=== PATIENT | female | born 1970 | race Caucasian/White ===

== ENCOUNTER 2016-09-04 03:03 | Emergency (ER) | payer MEDICAID ==
[2016-09-04] MEDS ORDERED: IPRATROPIUM/ALBUTEROL 0.5-2.5 MG/3 ML AMPUL NEB ONE (03:22)
[2016-09-04 03:36] LABS: ABSOLUTE EOSINOPHILS # (AUTO) 0.3 10^3/uL (0.0-0.6); ABSOLUTE LYMPHOCYTES (AUTO) 4.8 10^3/uL (0.5-4.7); ABSOLUTE MONOCYTES (AUTO) 0.7 10^3/uL (0.1-1.4); ABSOLUTE NEUT (AUTO) 4.9 10^3/uL (1.7-8.2); BASOPHILS % (AUTO) 0.5 % (0-2); EOSINOPHILS % (AUTO) 3.2 % (0-6); HEMATOCRIT 39.5 % (36.0-47.0); HEMOGLOBIN 13.7 g/dL (12.0-15.5); HGB HCT DIFFERENCE 1.6; LYMPHOCYTES % (AUTO) 44.2 % (13-45); MEAN CORPUSCULAR HGB CONC 34.6 g/dL (32.0-36.0); MEAN CORPUSCULAR VOLUME 90 fl (80-97); MONOCYTES % (AUTO) 6.2 % (3-13); RED BLOOD COUNT 4.41 10^6/uL (3.72-5.28); RED CELL DISTRIBUTION WIDTH 13.1 % (11.5-14.0); SEGMENTED NEUTROPHILS % (AUTO) 45.9 % (42-78); WHITE BLOOD COUNT 10.8 10^3/uL (4.0-10.5)
[2016-09-04 03:41] LABS: ALANINE AMINOTRANSFERASE 23 U/L (9-52); ALBUMIN 4.1 g/dL (3.5-5.0); ALKALINE PHOSPHATASE 87 U/L (38-126); ANION GAP 13 (5-19); ASPARTATE AMINO TRANSFERASE 22 U/L (14-36); BILIRUBIN,DIRECT 0.4 mg/dL (0.0-0.4); BILIRUBIN,TOTAL 0.5 mg/dL (0.2-1.3); BLOOD UREA NITROGEN 8 mg/dL (7-20); CALCIUM 9.7 mg/dL (8.4-10.2); CARBON DIOXIDE 30 mmol/L (22-30); CHLORIDE 93 mmol/L (98-107); CREATINE KINASE 48 U/L (30-135); GLUCOSE 101 mg/dL (75-110); POTASSIUM 3.5 mmol/L (3.6-5.0); SODIUM 135.8 mmol/L (137-145); TOTAL PROTEIN 7.2 g/dL (6.3-8.2)
[2016-09-04] MEDS: ALBUTEROL SULFATE 0.083% NEB 2.5 MG/3 ML AMPUL NEB SCH ×2 (03:45→03:46)
[2016-09-04 03:53] LABS: CREATINE KINASE MB 0.47 ng/mL (<4.55)
[2016-09-04 03:54] LABS: TROPONIN I < 0.012 ng/mL
--- NOTE | 2016-09-04 04:28 | ER Document Report ---
ED Cardiac - General Chief Complaint: Chest Pain Stated Complaint: DIFFICULTY BREATHING Mode of Arrival: Medic Information source: Patient Notes: Patient presents complaining of a 10 day history of left-sided chest pain, left neck pain, left arm pain, low back pain. Patient states that she does have a history of chronic back pain and typically takes Opana ER but has been out for the past 2 weeks due to insurance issue. Patient states she does have her short acting Percocet which she has been taking, but has to take more of it due to not taking her Opana. Patient reports nausea and vomiting 1 episode today. Patient states she has had chills and felt like she's had a fever but has not measured her temperature at home. Patient complains of cough that is occasionally productive that is somewhat worse than typical other she states she has a chronic cough. Patient denies any immobilization or recent travel. Patient states that she does have a history of previous heart attack that was 12 years ago, although states that she was only told later that she may have had a mild heart attack. Patient states that due to not having her pain medication she has been grinding her teeth and that she attributes her jaw pain to grinding her teeth. TRAVEL OUTSIDE OF THE [place] IN LAST 30 DAYS: No - HPI Patient complains to provider of: Chest pain. denies: Shortness of breath Was the onset of pain: Gradual Chest pain location: Substernal, Under breast Quality of pain: Intermittent Chest pain radiation location: Left jaw, Left arm Pain level currently: 3 Cardiac risk factors: Hypertension, Smoker, Hx VT Associated symptoms: Anxiety, Back pain - Chronic, Fever/chills, Jaw pain, Nausea/vomiting. denies: Dizziness, Shortness of breath Exacerbated by: Denies Relieved by: Nothing Similar symptoms previously: Yes Recently seen / treated by doctor: No - Related Data Allergies/Adverse Reactions: aspirin [Aspirin] Adverse Reaction (Severe, Verified 10/29/14 09:31) esoph bleeding morphine [Morphine] Adverse Reaction (Intermediate, Verified 10/29/14 09:31) bad dreams Past Medical History - General Information source: Patient - Social History Smoking Status: Current Every Day Smoker Frequency of alcohol use: None Drug Abuse: None Occupation: disability Lives with: Family Family History: Arthritis, Hypertension, Malignancy. denies: CAD, CVA, DM, Hyperlipidemia, Thyroid Disfunction - Past Medical History Cardiac Medical History: Reports: Hx Heart Attack - Patient states she was told that she had a small one, Hx Hypertension Pulmonary Medical History: Reports: Hx Asthma, Hx Bronchitis, Hx COPD Denies: Hx Pneumonia Neurological Medical History: Reports: Hx Seizures - 2013 - was on dilantin Renal/ Medical History: Reports: Hx Kidney Stones GI Medical History: Reports: Hx Gastroesophageal Reflux Disease, Hx Ulcer Musculoskeltal Medical History: Reports Hx Arthritis, Reports Hx Musculoskeletal Deformity, Reports Hx Musculoskeletal Trauma Psychiatric Medical History: Reports: Hx Depression Traumatic Medical History: Reports: Hx Fractures Past Surgical History: Reports: Hx Oral Surgery, Hx Orthopedic Surgery - right foot; right hand, Hx Tubal Ligation - Immunizations Immunizations up to date: No Hx Diphtheria, Pertussis, Tetanus Vaccination: No Hx Pneumococcal Vaccination: 05/16/14 Review of Systems - Review of Systems Constitutional: Chills, Fever - Possible EENT: No symptoms reported Cardiovascular: Chest pain Respiratory: Cough. denies: Short of breath Gastrointestinal: Nausea, Vomiting. denies: Abdominal pain Genitourinary: No symptoms reported. denies: Dysuria, Flank pain Female Genitourinary: No symptoms reported Musculoskeletal: Back pain, Neck pain Skin: No symptoms reported Hematologic/Lymphatic: No symptoms reported Neurological/Psychological: No symptoms reported Physical Exam - Vital signs Vitals: Pulse Ox 96 09/04/16 03:12 - General General appearance: Alert In distress: None Notes: Appears older than stated age - HEENT Head: Normocephalic, Atraumatic Eyes: Normal Conjunctiva: Normal Nasal: Normal Mouth/Lips: Normal Pharynx: Normal Neck: No: Lymphadenopathy Notes: Tenderness with palpation of sternocleidomastoid muscle, patient with tenderness with palpation of left TMJ joint - Respiratory Respiratory status: No respiratory distress Chest status: Tender Breath sounds: Nonproductive cough, Rhonchi Chest palpation: Tender - Cardiovascular Rhythm: Regular Heart sounds: S1 appreciated, S2 appreciated Murmur: No - Abdominal Inspection: Normal Distension: No distension Bowel sounds: Normal Tenderness: Nontender Organomegaly: No organomegaly - Back Back: Vertebra tenderness - Lower lumbar tenderness. No: CVA tenderness - Extremities General upper extremity: Normal inspection, Normal ROM General lower extremity: Normal inspection, Normal ROM - Neurological Neuro grossly intact: Yes Cognition: Normal [place] Coma Scale Eye Opening: Spontaneous [place] Coma Scale Verbal: Oriented [place] Coma Scale Motor: Obeys Commands Tae Coma Scale Total: 15 - Psychological Associated symptoms: Normal affect, Normal mood - Skin Skin Temperature: Warm Skin Moisture: Dry Skin Color: Pale Course - Re-evaluation Re-evalutation: 09/04/16 05:54 Patient reports that chest pain is resolved at this time and is requesting to be able to be discharged home. Consulted with Dr. Post regarding patient presentation and diagnostic test results. Patient with her symptoms for the past 10 days. Only recommends one set of cardiac enzyme testing at this time. Repeat EKG reviewed. Discussed planning care with patient, patient verbalized understanding and agrees with plan of care. Discussed worsening signs or symptoms that patient should return immediately for.The patient has atypical chest pain as the patient 's chest pain is not suggestive of pulmonary embolus, cardiac ischemia, aortic dissection, or other serious etiology. Given the extremely low risk of these diagnoses for the test in evaluation for these possibilities does not appear to be indicated at this time. Patient has been instructed to return if the symptoms worsen or change in any way. Heart score 3. - Vital Signs Vital signs: Temp Pulse Resp BP Pulse Ox 20 105/75 93 09/04/16 06:01 09/04/16 06:01 09/04/16 06:01 - Laboratory Result Diagrams: 09/04/16 03:15 09/04/16 03:15 Laboratory results interpreted by me: 09/04/16 09/04/16 03:15 03:15 WBC 10.8 H Absolute Lymphocytes 4.8 H Sodium 135.8 L Potassium 3.5 L Chloride 93 L 09/04/16 05:59 Labs- Entire Visit 09/04/16 09/04/16 09/04/16 03:15 03:15 03:15 WBC 10.8 H RBC 4.41 Hgb 13.7 Hct 39.5 MCV 90 MCH 31.0 MCHC 34.6 RDW 13.1 Plt Count 276 Seg Neutrophils % 45.9 Lymphocytes % 44.2 Monocytes % 6.2 Eosinophils % 3.2 Basophils % 0.5 Absolute Neutrophils 4.9 Absolute Lymphocytes 4.8 H Absolute Monocytes 0.7 Absolute Eosinophils 0.3 Absolute Basophils 0.0 Sodium 135.8 L Potassium 3.5 L Chloride 93 L Carbon Dioxide 30 Anion Gap 13 BUN 8 Creatinine 0.80 Est GFR ( Amer) > 60 Est GFR (Non-Af Amer) > 60 Glucose 101 Calcium 9.7 Total Bilirubin 0.5 Direct Bilirubin 0.4 Indirect Bilirubin Not Reportable Neonat Total Bilirubin Not Reportable AST 22 ALT 23 Alkaline Phosphatase 87 Creatine Kinase 48 CK-MB (CK-2) 0.47 Troponin I < 0.012 Total Protein 7.2 Albumin 4.1 Lipase 09/04/16 03:15 WBC RBC Hgb Hct MCV MCH MCHC RDW Plt Count Seg Neutrophils % Lymphocytes % Monocytes % Eosinophils % Basophils % Absolute Neutrophils Absolute Lymphocytes Absolute Monocytes Absolute Eosinophils Absolute Basophils Sodium Potassium Chloride Carbon Dioxide Anion Gap BUN Creatinine Est GFR ( Amer) Est GFR (Non-Af Amer) Glucose Calcium Total Bilirubin Direct Bilirubin Indirect Bilirubin Neonat Total Bilirubin AST ALT Alkaline Phosphatase Creatine Kinase CK-MB (CK-2) Troponin I Total Protein Albumin Lipase 40.4 - Diagnostic Test Radiology reviewed: Reports reviewed Discharge - Discharge Clinical Impression: Tobacco use disorder, Hypokalemia, Obstructive chronic bronchitis with exacerbation Chest pain Qualifiers: Chest pain type: unspecified Qualified Code(s): R07.9 - Chest pain, unspecified Chronic pain Qualifiers: Chronic pain type: other chronic pain Qualified Code(s): G89.29 - Other chronic pain Condition: Stable Disposition: HOME, SELF-CARE Instructions: Chest Pain of Unclear Cause ([facility]), Chronic Obstructive Lung Disease ([facility]), Doxycycline ([facility]), Inhaled Bronchodilators ([facility]), Chronic Pain Control ([facility]) Additional Instructions: Return immediately for any new or worsening symptoms Followup with your primary care provider, call tomorrow to make a followup appointment Follow up with a health club attendant as an outpatient for a recheck, call Tuesday for an appointment time Use your inhalers at home as prescribed Prescriptions: Benzonatate [Tessalon Perle 100 mg Capsule] 100 mg PO Q8HP PRN #20 cap PRN Reason: Doxycycline Hyclate 100 mg PO BID #20 capsule Referrals: EBONY GRADY DO [Primary Care Provider] - 09/06/16 YUKI DORADO MD [ACTIVE STAFF] - 09/06/16
[2016-09-04 04:39] LABS: ADD ON TESTING BLD IN LAB ACKNOWLEDGE
[2016-09-04 04:45] LABS: LIPASE 40.4 U/L (23-300)
[2016-09-04] MEDS ORDERED: OXYCODONE-ACETAMINOPHEN 5-325 MG TABLET PO ONE (04:58)
[2016-09-04] MEDS ORDERED: POTASSIUM CHLORIDE 10 MEQ TABLET.SA PO ONE (05:57)
[2016-09-04] MEDS ORDERED: DOXYCYCLINE HYCLATE 100 MG TABLET PO ONE (05:59)
[2016-09-04 06:40] VITALS: BP 105/75
--- NOTE | 2016-09-05 17:02 | EKG REPORT ---
SEVERITY:- BORDERLINE ECG - SINUS TACHYCARDIA VENTRICULAR PREMATURE COMPLEX PROBABLE LEFT ATRIAL ABNORMALITY : Confirmed by: Vangie Hemphill MD 05-Sep-2016 17:01:56
--- NOTE | 2016-09-05 17:02 | EKG REPORT ---
SEVERITY:- ABNORMAL ECG - SINUS RHYTHM FIRST DEGREE AV BLOCK LOW VOLTAGE IN FRONTAL LEADS : Confirmed by: Vangie Hemphill MD 05-Sep-2016 17:01:28
== END 2016-09-04 06:40 | disposition home or self-care (01) ==
LOC: ER 03:03
DX: J44.1 Chronic obstructive pulmonary disease with (acute) exacerbation (principal); E87.6 Hypokalemia; R07.9 Chest pain, unspecified; G89.29 Other chronic pain; R06.02 Shortness of breath; M54.2 Cervicalgia; M79.602 Pain in left arm; R05 Cough; F17.200 Nicotine dependence, unspecified, uncomplicated
CPT/HCPCS: 93005; 94640 ×2; 99285; 36415; 82553; 82550; 83690; 85025; 80053; 84484; 71020; 93010; J7620

== ENCOUNTER → 2016-11-02 | Outpatient (CLI) | payer MEDICARE, MEDICAID ==
--- NOTE | 2016-11-02 17:08 | WOMENS IMAGING REPORT ---
EXAM DESCRIPTION: BILAT SCREENING MAMMO W/CAD COMPLETED DATE/TIME: 11/02/2016 3:53 pm REASON FOR STUDY: Z12.31, ROUTINE SCREENING MAMMO Z12.39 ENCOUNTER FOR [facility] SCREENING FOR MALIGNANT NEOPLASM OF COMPARISON: 08/19/2015 TECHNIQUE: Standard craniocaudal and mediolateral oblique views of each breast recorded using GeoQuipa l acquisition. LIMITATIONS: None. FINDINGS: No masses, calcifications or architectural distortion. No areas of suspicion. Read with the assistance of CAD. .[facility] - R2 Cenova Version 1.3 .[facility] - R2 Cenova Version 1.3 .[facility] - R2 Cenova Version 2.4 .[facility] - R2 Cenova Version 2.4 .[facility] - R2 Engineering Aid Version 9.2 IMPRESSION: NORMAL MAMMOGRAM. BIRADS 1. BREAST DENSITY: c. The breasts are heterogeneously dense, which may obscure small masses. BIRAD: 1 NEGATIVE RECOMMENDATION: ROUTINE SCREENING Please consider bilateral screening tomosynthesis in October 2017, given heterogeneously dense tissue COMMENT: The patient has been notified of the results by letter per SA requirements. Additional no tification policies are in place for contacting patient with suspicious or incomplete findings. Quality ID #[id number]: The [employer] recommends an annual screening mammogram for women aged 40 years or over. This facility utilizes a reminder system to ensure that all patients receive reminder letters, and/or direct phone calls for appointments. This includes reminders for routine scr eening mammograms, diagnostic mammograms, or other Breast Imaging Interventions when appropriate. Th is patient will be placed in the appropriate reminder system. The [employer] (ACR) has developed recommendations for screening MRI of the breast s in certain patient populations, to be used in conjunction with mammography. Breast MRI surveillanc e may be appropriate for women with more than 20% lifetime risk of developing breast cancer as deter mined by genetic testing, significant family history of the disease, or history of mantle radiation f or Hodgkins Disease. ACR Practice Guidelines 2008. TECHNICAL DOCUMENTATION: FINDING NUMBER: (1) ASSESSMENT: (1) JOB ID: [id number] [employer]- All Rights Reserved
== END ==
LOC: WI 15:27
PROVIDERS: ATTEND Family Medicine
DX: Z12.31 Encounter for screening mammogram for malignant neoplasm of breast (principal)
CPT/HCPCS: 77067; G0202

== ENCOUNTER 2017-04-13 08:30 | Emergency (ER) | payer MEDICARE, MEDICAID ==
[2017-04-13] MEDS ORDERED: KETAMINE HCL INJ 500 MG/10 ML VIAL ONE (08:35)
[2017-04-13] MEDS ORDERED: IPRATROPIUM/ALBUTEROL 0.5-2.5 MG/3 ML AMPUL NEB ONE ×2 (08:45→09:34)
[2017-04-13] MEDS ORDERED: METHYLPREDNISOLONE INJ 125 MG/2 ML SDV ONE (08:45)
[2017-04-13] MEDS ORDERED: PROPOFOL 100 ML IV ONE (08:49)
[2017-04-13] MEDS ORDERED: MAGNESIUM SULFATE/D5W 2 GM/200 ML RTUPB IV ONE (09:08)
--- NOTE | 2017-04-13 09:18 | RADIOLOGY REPORT (SQ) ---
EXAM DESCRIPTION: CHEST SINGLE VIEW COMPLETED DATE/TIME: 04/13/2017 9:09 am REASON FOR STUDY: T2 RESP DISTRESS COMPARISON: 09/04/2016. EXAM PARAMETERS: NUMBER OF VIEWS: One view. TECHNIQUE: Single frontal radiographic view of the chest acquired. RADIATION DOSE: NA LIMITATIONS: None. FINDINGS: LUNGS AND PLEURA: There is volume loss in the right hemithorax with some increased density in the right paratracheal region, possibly indicating atelectasis of the right upper lobe. The lung s are otherwise clear. No pleural effusion. No pneumothorax. MEDIASTINUM AND HILAR STRUCTURES: No masses. Contour normal. HEART AND VASCULAR STRUCTURES: Heart normal in size. Normal vasculature. BONES: No acute findings. HARDWARE: Endotracheal tube with the tip located 6.5 cm proximal to the arnold. Nasogastric tube wit h the tip the stomach. OTHER: No other significant finding. IMPRESSION: 1. VOLUME LOSS IN THE RIGHT HEMITHORAX. POSSIBLE ATELECTASIS OF THE RIGHT UPPER LOBE. OTHERWISE NO OTHER ACUTE FINDINGS. 2. LIFE LINES DESCRIBED. TECHNICAL DOCUMENTATION: JOB ID: [id number] [employer]- All Rights Reserved
[2017-04-13] MEDS ORDERED: METHYLPREDNISOLONE INJ 125 MG/2 ML SDV IV ONE (09:34)
[2017-04-13] MEDS ORDERED: KETAMINE HCL INJ 500 MG/10 ML VIAL IV ONE (09:35)
[2017-04-13] MEDS ORDERED: NORMAL SALINE 1000 ML 1,000 ML IV ONE ×2 (09:35→10:09)
[2017-04-13] MEDS ORDERED: FENTANYL CITRATE INJ/PF 100 MCG/2 ML AMPUL IV ONE (09:37)
[2017-04-13] MEDS ORDERED: PROPOFOL INJ 200 MG/20 ML VIAL IV ONE (09:37)
[2017-04-13] MEDS ORDERED: MAGNESIUM SULFATE/D5W 1 GM/100 ML RTUPB IV SCH (09:45)
--- NOTE | 2017-04-13 09:49 | ER Document Report ---
ED Respiratory Problem - General Chief Complaint: Respiratory Distress Stated Complaint: RESPIRATORY DISTRESS Time Seen by Provider: 04/13/17 08:54 Information source: Emergency Med Personnel Notes: The patient is a 46-year-old female, PMHx COPD, chronic pain, who presents by EMS in respiratory distress. According to EMS, the patient was having increased shortness of breath since yesterday. When EMS arrived her pulse ox on room air was in the 60s. She was started on 2 duonebs and CPAP. Patient arrives to the ER tachypneic, tripoding, diaphoretic and satting 74% on CPAP with a PEEP of 10. Patient unable to provide any additional history. TRAVEL OUTSIDE OF THE [place] IN LAST 30 DAYS: No - Related Data Allergies/Adverse Reactions: aspirin [Aspirin] Adverse Reaction (Severe, Verified 10/29/14 09:31) esoph bleeding morphine [Morphine] Adverse Reaction (Intermediate, Verified 10/29/14 09:31) bad dreams Past Medical History - General Information source: Emergency Med Personnel - Social History Smoking Status: Unknown if Ever Smoked Family History: Arthritis, Hypertension, Malignancy. denies: CAD, CVA, DM, Hyperlipidemia, Thyroid Disfunction - Past Medical History Cardiac Medical History: Reports: Hx Heart Attack - Patient states she was told that she had a small one, Hx Hypertension Pulmonary Medical History: Reports: Hx Asthma, Hx Bronchitis, Hx COPD Denies: Hx Pneumonia Neurological Medical History: Reports: Hx Seizures - 2012 - was on dilantin Renal/ Medical History: Reports: Hx Kidney Stones GI Medical History: Reports: Hx Gastroesophageal Reflux Disease, Hx Ulcer Musculoskeltal Medical History: Reports Hx Arthritis, Reports Hx Musculoskeletal Deformity, Reports Hx Musculoskeletal Trauma Psychiatric Medical History: Reports: Hx Depression Traumatic Medical History: Reports: Hx Fractures Past Surgical History: Reports: Hx Oral Surgery, Hx Orthopedic Surgery - right foot; right hand, Hx Tubal Ligation - Immunizations Immunizations up to date: No Hx Diphtheria, Pertussis, Tetanus Vaccination: No Hx Pneumococcal Vaccination: 05/16/14 Review of Systems - Review of Systems -: Yes ROS unobtainable due to patient's medical condition Physical Exam - Vital signs Vitals: Resp Pulse Ox 39 H 73 L 04/13/17 08:33 04/13/17 08:33 - Notes Notes: PHYSICAL EXAMINATION: GENERAL: Severe respiratory distress. HEAD: Atraumatic, normocephalic. EYES: Pupils equal round and reactive to light, extraocular movements intact, sclera anicteric, conjunctiva are normal. ENT: nares patent, oropharynx clear without exudates. Moist mucous membranes. NECK: Normal range of motion, supple without lymphadenopathy LUNGS: Tachypnea. Decreased air movement, worse in right lung. Expiratory wheezing. HEART: Regular rhythm. Tachycardia. ABDOMEN: Soft, nontender, normoactive bowel sounds. No guarding, no rebound. No masses appreciated. EXTREMITIES: No pitting or edema. Cyanotic extremities. NEUROLOGICAL: Awake, moving all 4 extremities. Unable to talk due to distress. SKIN: Diaphoretic skin. Clammy. Course - Re-evaluation Re-evalutation: Patient seen immediately on arrival due to respiratory distress and hypoxia. BiPAP was attempted in the ER for a few minutes without much improvement in her hypoxia. Decision was made to intubate. Ketamine was provided to assist with awake intubation due to her hypoxia. After intubation, patient remains hypoxic in the upper 70s to low 80s, despite 100% FiO2, increased PEEP and large tidal volumes. Patient was manually bagged with improvement of her oxygenation. High concern for PE due to the persistent hypoxia and tachycardia, despite improvement in lung sounds. She was emergently brought over for a CTA chest before waiting for labs to assess this. Patient's hypoxia improved using Pressure Control settings. Pt has a WBC of 27, lactate of 3.4 and UTI on UA. Her CXR and CTA do not show any evidence of pneumonia or PE. Pt's first troponin is 0.107. EKG shows sinus tachycardia and this is most likely from demand ischemia and hypoxia. Do not suspect an acute thrombotic event. CTA shows no PE, but it does show evidence of mediastinal air and air in her neck, which is most likely related to the increased PEEP needed to oxygenate the patient. In addition, her blood work is significant for a profound hypokalemia and this was repleted. She also was found to be in rhabdo with a CPK of 2200 and IVF were provided. She also has new onset renal failure. Her last creatinine was 0.8 three months ago and is now 2.1. Suspect multiorgan failure from the prolonged hypoxia, which may have started last night, and possible severe sepsis. Broad-spectrum antibiotics started after cultures were sent. 04/13/17 11:02 Spoke to [facility] and [facility], but no ICU beds available. Spoke to [facility] for transfer to center with Light Fixture Servicer and CT Surgery. No Intensivists or CT Surgeons at [facility]. Awaiting callback. 04/13/17 13:[address] Vasquez ([facility]) and he has accepted patient. Dr. Sun ([facility] CT Surgeon) said he could consult on patient and intervene if mediastinal air worsens. 04/13/17 15:00 Pt reevaluated just prior to transfer and she remains stable on the vent. - Vital Signs Vital signs: Temp Pulse Resp BP Pulse Ox 99.6 F 20 136/120 H 94 04/13/17 15:24 04/13/17 15:24 04/13/17 15:24 04/13/17 15:24 - Laboratory Result Diagrams: 04/13/17 09:11 04/13/17 09:11 Laboratory results interpreted by me: 04/13/17 04/13/17 04/13/17 09:11 09:11 09:11 WBC 27.4 H RBC 5.94 H Hgb 18.8 H Hct 53.5 H Seg Neuts % (Manual) 88 H Band Neutrophils % 1 L Lymphocytes % (Manual) 5 L Abs Neuts (Manual) 24.4 H Abs Monocytes (Manual) 1.6 H VBG pH Potassium 2.5 L* Chloride 86 L Anion Gap 31 H BUN 71 H Creatinine 2.10 H Est GFR ( Amer) 31 L Est GFR (Non-Af Amer) 25 L Glucose 124 H Lactic Acid Total Bilirubin 2.6 H Direct Bilirubin 1.9 H AST 105 H Alkaline Phosphatase 142 H Creatine Kinase 2113 H NT-Pro-B Natriuret Pep 3970 H Total Protein 9.1 H Urine Protein Urine Ketones Urine Blood Urine Urobilinogen Ur Leukocyte Esterase 04/13/17 04/13/17 04/13/17 09:11 09:11 09:54 WBC RBC Hgb Hct Seg Neuts % (Manual) Band Neutrophils % Lymphocytes % (Manual) Abs Neuts (Manual) Abs Monocytes (Manual) VBG pH 7.47 H Potassium Chloride Anion Gap BUN Creatinine Est GFR ( Amer) Est GFR (Non-Af Amer) Glucose Lactic Acid 3.6 H Total Bilirubin Direct Bilirubin AST Alkaline Phosphatase Creatine Kinase NT-Pro-B Natriuret Pep Total Protein Urine Protein >=500 H Urine Ketones 20 H Urine Blood LARGE H Urine Urobilinogen 2.0 H Ur Leukocyte Esterase LARGE H 04/13/17 14:21 WBC RBC Hgb Hct Seg Neuts % (Manual) Band Neutrophils % Lymphocytes % (Manual) Abs Neuts (Manual) Abs Monocytes (Manual) VBG pH Potassium Chloride Anion Gap BUN Creatinine Est GFR ( Amer) Est GFR (Non-Af Amer) Glucose Lactic Acid 2.9 H Total Bilirubin Direct Bilirubin AST Alkaline Phosphatase Creatine Kinase NT-Pro-B Natriuret Pep Total Protein Urine Protein Urine Ketones Urine Blood Urine Urobilinogen Ur Leukocyte Esterase - Diagnostic Test Radiology reviewed: Image reviewed, Reports reviewed Radiology results interpreted by me: CXR: ETT 6.5 cm above arnold (ETT was pushed in 3 cm). Atelectasis in right upper and right lower lung bases. CTA Chest: - EKG Interpretation by Me EKG shows normal: Sinus rhythm, [place], Intervals, QRS Complexes Rate: Tachycardia Additional EKG results interpreted by me: 04/13/17 09:[address] depressions. 04/13/17 10:[address] depressions. Procedures - Intubation Orotracheal Time of Intubation: 08:50 Airway evaluation: Normal anatomy Mallampati Classification: Class 1 Medications: Succinylcholine, Ketamine Intubation method: Orotracheal Blade type: Camacho Blade size: 4 Equipment used: Glidescope ETT size: 7.0 ETT secured at: Lips ETT secured at (cm): 26 Breath Sounds after Intubation: Equal End tidal CO2 confirmed: Yes Ventilator settings: AC Tidal volume: 500 FiO2: 100 Respirations: 20 PEEP: 5 Post Intubation Xray: Yes Intubation Complications: No complications Critical Care Note - Critical Care Note Total time excluding time spent on procedures (mins): 120 Discharge - Discharge Clinical Impression: Hypoxia, Respiratory distress, acute, Mediastinal air, CANDIDO (acute kidney injury ), Multiorgan failure, Hypokalemia, Severe sepsis UTI (urinary tract infection) Qualifiers: Urinary tract infection type: site unspecified Hematuria presence: with hematuria Qualified Code(s): N39.0 - Urinary tract infection, site not specified Rhabdomyolysis Qualifiers: Rhabdomyolysis type: non-traumatic Qualified Code(s): M62.82 - Rhabdomyolysis Condition: Critical Disposition: [place] Referrals: EBONY GRADY DO [Primary Care Provider] - Follow up as needed
[2017-04-13 09:54] LABS: PROTHROMBIN TIME 15.1 SEC (11.4-15.4)
[2017-04-13 09:55] LABS: PARTIAL THROMBOPLASTIN TIME 27.6 SEC (23.5-35.8)
[2017-04-13 10:03] LABS: HEMATOCRIT 53.5 % (36.0-47.0); HEMOGLOBIN 18.8 g/dL (12.0-15.5); HGB HCT DIFFERENCE 2.9; MEAN CORPUSCULAR HEMOGLOBIN 31.7 pg (27.0-33.4); MEAN CORPUSCULAR HGB CONC 35.2 g/dL (32.0-36.0); MEAN CORPUSCULAR VOLUME 90 fl (80-97); RED BLOOD COUNT 5.94 10^6/uL (3.72-5.28); RED CELL DISTRIBUTION WIDTH 13.4 % (11.5-14.0); WHITE BLOOD COUNT 27.4 10^3/uL (4.0-10.5)
[2017-04-13] MEDS ORDERED: AZITHROMYCIN INJ 500 MG VIAL IV ONE (10:09)
[2017-04-13] MEDS ORDERED: CEFTRIAXONE 1 GM/D5W RTU 1 GM/50 ML RTUPB IV ONE (10:09)
[2017-04-13 10:12] LABS: VENOUS BLOOD HCO3 28.1 mmol/L (20-32); VENOUS BLOOD PCO2 39.9 mmHg (35-63); VENOUS BLOOD PH 7.47 (7.30-7.42)
[2017-04-13 10:13] LABS: TROPONIN I 0.107 ng/mL
[2017-04-13 10:16] LABS: APPEARANCE,URINE CLOUDY; BILIRUBIN,URINE NEGATIVE (NEGATIVE); GLUCOSE, URINE NEGATIVE (NEGATIVE); KETONES,URINE 20 mg/dL (NEGATIVE); LEUKOCYTE ESTERASE,URINE LARGE (NEGATIVE); NITRITE,URINE NEGATIVE (NEGATIVE); PROTEIN,URINE >=500 mg/dL (NEGATIVE); URINE SPECIFIC GRAVITY 1.033
[2017-04-13 10:26] LABS: BAND NEUTROPHILS % (MANUAL) 1 % (3-5); BASOPHILS % (MANUAL) 0 % (0-2); EOSINOPHILS % (MANUAL) 0 % (0-6); LYMPHOCYTES % (MANUAL) 5 % (13-45); POLYCHROMASIA SLIGHT; TOTAL CELLS COUNTED 100; TOXIC GRANULATION SLIGHT
[2017-04-13] MEDS ORDERED: SUCCINYLCHOLINE CHLORIDE INJ 200 MG/10 ML VIAL ONE (10:27)
[2017-04-13 10:30] LABS: ALANINE AMINOTRANSFERASE 35 U/L (9-52); ALKALINE PHOSPHATASE 142 U/L (38-126); ASPARTATE AMINO TRANSFERASE 105 U/L (14-36); BILIRUBIN,DIRECT 1.9 mg/dL (0.0-0.4); BILIRUBIN,TOTAL 2.6 mg/dL (0.2-1.3); BLOOD UREA NITROGEN 71 mg/dL (7-20); CALCIUM 10.2 mg/dL (8.4-10.2); CARBON DIOXIDE 23 mmol/L (22-30); CHLORIDE 86 mmol/L (98-107); GLUCOSE 124 mg/dL (75-110); SODIUM 140.2 mmol/L (137-145); TOTAL PROTEIN 9.1 g/dL (6.3-8.2)
[2017-04-13 10:33] LABS: POTASSIUM 2.5 mmol/L (3.6-5.0)
[2017-04-13] MEDS ORDERED: POTASSIUM CHLORIDE 20 MEQ/15 ML UDCUP PO ONE (10:34)
[2017-04-13 10:37] LABS: LIPASE 181.4 U/L (23-300)
[2017-04-13 10:44] LABS: CREATINE KINASE 2113 U/L (30-135)
--- NOTE | 2017-04-13 10:45 | RADIOLOGY REPORT (SQ) ---
EXAM DESCRIPTION: CTA CHEST COMPLETED DATE/TIME: 04/13/2017 9:45 am REASON FOR STUDY: T2 RESP DISTRESS EVAL FOR PE COMPARISON: Chest x-ray dated 04/13/2017 TECHNIQUE: CT scan of the chest performed using helical scanning technique with dynamic intravenous contrast injection. Images reviewed with lung, soft tissue and bone windows. Reconstructed coronal and sagittal MPR images reviewed. Additional 3 dimensional post-processing performed to develop Maximal Intensity Projection images (NC P). All images stored on PACS. All CT scanners at this facility use dose modulation, iterative reconstruction, and/or weight based d osing when appropriate to reduce radiation dose to as low as reasonably achievable (ALARA). [facility]: Dose Right [facility]: CareDose [facility]: Dose Right [facility]: Teradose 4D [facility]: Loopster CONTRAST TYPE AND DOSE: contrast/concentration: Isovue 370.00 mg/ml; Total Contrast Delivered: 73.0 ml; Total Saline Delivered: 100.0 ml 73 mL Omnipaque 350 Contrast bolus optimized for the pulmonary arteries. Not diagnostic for the aorta. RENAL FUNCTION: None required. The patient is less than 50 years old. RADIATION DOSE: . LIMITATIONS: Study is limited somewhat due to motion artifact. FINDINGS: LUNGS AND PLEURA: No masses, infiltrates, pneumothorax. No pleural effusions, calcificati ons. AORTA AND GREAT VESSELS: No aneurysm. Contrast bolus not optimized for the aorta. HEART: No pericardial effusion. No significant coronary artery calcifications. PULMONARY ARTERIES: No emboli visualized in the main pulmonary arteries or the segmental branches. HILAR AND MEDIASTINAL STRUCTURES: Air is identified within the mediastinum primarily adjacent to the trachea which extends into the right hilar region and extends into the subcarinal region. Air is hannah ntified in the deep soft tissues in the visualized portions of the posteriorly and primarily to the r ight of midline. HARDWARE: Endotracheal tube is identified within the trachea with its tip at the approximate level of the aortic arch. NG tube is identified in the esophagus extending into the left upper quadrant with in the stomach. UPPER ABDOMEN: No significant findings. Limited exam. THYROID AND OTHER SOFT TISSUES: No masses. No adenopathy. BONES: No acute or significant finding. 3D MIPS: Confirm above findings. OTHER: No other significant finding. IMPRESSION: No evidence for pulmonary embolic disease. No acute consolidations or pleural effusions are identified. No pneumothorax is seen. Air is identified in the mediastinum as noted above. Air is identified in the deep soft tissues of the visualized portions of the neck as noted above endotra cheal tube and NG tube in appropriate positions. Other findings as noted above COMMENT: Quality ID # [id number]: Final reports with documentation of one or more dose reduction techniques (e.g., Automated exposure control, adjustment of the mA and/or kV according to patient size, use of iterative reconstruction technique) TECHNICAL DOCUMENTATION: JOB ID: [id number] [employer]- All Rights Reserved
[2017-04-13 11:20] LABS: ANION GAP 31 (5-19)
[2017-04-13] MEDS: POTASSI CL 20 MEQ/50 ML RIDER 20 MEQ/50 ML RTUPB IV SCH ×2 (11:36→13:36)
[2017-04-13] MEDS: PROPOFOL 100 ML IV PRN ×2 (12:24→14:52)
[2017-04-13] MEDS ORDERED: IPRATROPIUM/ALBUTEROL 0.5-2.5 MG/3 ML AMPUL NEB SCH (13:00)
[2017-04-13 14:39] VITALS: BP 136/120
--- NOTE | 2017-04-13 20:19 | EKG REPORT ---
SEVERITY:- ABNORMAL ECG - SINUS TACHYCARDIA [id number] YOSELIN, CONSIDER BIATRIAL ABNORMALITIES LEFT ANTERIOR FASCICULAR BLOCK CONSIDER POSTERIOR INFARCT : Confirmed by: Nicanor Milner MD 13-Apr-2017 20:18:59
--- NOTE | 2017-04-13 20:20 | EKG REPORT ---
SEVERITY:- ABNORMAL ECG - SINUS TACHYCARDIA BORDERLINE IVCD WITH LAD INFERIOR INFARCT, AGE INDETERMINATE ANTERIOR INFARCT, AGE INDETERMINATE : Confirmed by: Nicanor Milner MD 13-Apr-2017 20:19:36
== END 2017-04-13 14:56 | disposition short-term general hospital (02) ==
LOC: ER 08:30
DX: A41.9 Sepsis, unspecified organism (principal); R65.20 Severe sepsis without septic shock; N39.0 Urinary tract infection, site not specified; R31.9 Hematuria, unspecified; N17.9 Acute kidney failure, unspecified; E87.6 Hypokalemia; J44.9 Chronic obstructive pulmonary disease, unspecified; J98.11 Atelectasis; R06.03 Acute respiratory distress; M62.82 Rhabdomyolysis; R09.02 Hypoxemia; R61 Generalized hyperhidrosis; R00.0 Tachycardia, unspecified; I10 Essential (primary) hypertension
CPT/HCPCS: 93005; 94640 ×2; 99291; 99292; 96361; 96375; 96365; 96366; 96367; 36415; 87040; 87086; 82550; 83690; 85025; 85610; 85730; 81025; 87077; 87088; 80053; 81001; 84484; 87186; 82803; 83605; 87804; 83880; 71010; 71275; 93010; 31500; J3010; J2704; J3490; J2930; J3475; A9270 ×2; J0330; J3480; J7030; J0456; J0696; 94002; J7620

== ENCOUNTER 2017-12-02 17:06 | Inpatient (IN) | payer MEDICARE, MEDICAID ==
[2017-12-02] MEDS ORDERED: IPRATROPIUM/ALBUTEROL 0.5-2.5 MG/3 ML AMPUL NEB ONE ×2 (17:16→18:30)
[2017-12-02 17:47] LABS: ARTERIAL BLOOD BASE EXCESS 9.1 mmol/L; ARTERIAL BLOOD H2CO3 0.92 mmol/L (1.05-1.35); ARTERIAL BLOOD HCO3 30.1 mmol/L (20-26); ARTERIAL BLOOD PCO2 30.7 mmHg (35-45); ARTERIAL BLOOD PO2 56.9 mmHg (80-100)
[2017-12-02 17:48] LABS: ARTERIAL BLOOD FIO2 75%
[2017-12-02 17:50] LABS: ARTERIAL BLOOD PH 7.61 (7.35-7.45)
[2017-12-02 17:51] LABS: HEMATOCRIT 48.8 % (36.0-47.0); MEAN CORPUSCULAR HEMOGLOBIN 30.9 pg (27.0-33.4); MEAN CORPUSCULAR HGB CONC 34.8 g/dL (32.0-36.0); MEAN CORPUSCULAR VOLUME 89 fl (80-97); PLATELET COUNT 319 10^3/uL (150-450); RED BLOOD COUNT 5.49 10^6/uL (3.72-5.28); RED CELL DISTRIBUTION WIDTH 14.3 % (11.5-14.0); WHITE BLOOD COUNT 25.5 10^3/uL (4.0-10.5)
[2017-12-02] MEDS ORDERED: NORMAL SALINE 1000 ML 1,000 ML IV ONE (18:04)
--- NOTE | 2017-12-02 18:04 | RADIOLOGY REPORT (SQ) ---
EXAM DESCRIPTION: CHEST SINGLE VIEW COMPLETED DATE/TIME: 12/02/2017 5:50 pm REASON FOR STUDY: sob COMPARISON: CT angiogram chest and chest x-ray 04/13/2017. Chest x-ray 09/04/2016. EXAM PARAMETERS: NUMBER OF VIEWS: One view. TECHNIQUE: Single frontal radiographic view of the chest acquired. RADIATION DOSE: NA LIMITATIONS: Patient positioning. FINDINGS: LUNGS AND PLEURA: The patient is rotated. No consolidation, pneumothorax or pleural effus ion. MEDIASTINUM AND HILAR STRUCTURES: No masses. Contour normal. HEART AND VASCULAR STRUCTURES: Heart normal in size. Normal vasculature. BONES: No acute findings. HARDWARE: None in the chest. IMPRESSION: NO ACUTE RADIOGRAPHIC FINDING IN THE CHEST. TECHNICAL DOCUMENTATION: JOB ID: [id number] 2010 [employer]- All Rights Reserved Reading location - IP/workstation name: [email or web address]
--- NOTE | 2017-12-02 18:10 | ER Document Report ---
ED General - General Chief Complaint: Breathing Difficulty Stated Complaint: TROUBLE BREATHING Time Seen by Provider: 12/02/17 17:16 Cannot obtain history due to: Altered mental status TRAVEL OUTSIDE OF THE [place] IN LAST 30 DAYS: No - HPI Notes: 47-year-old female with history of COPD, hypertension, chronic pain on opiates presents with roommate for altered mental status for the past 2 days. She has not been compliant with her medications or BiPAP machine. He states she seemed excessively confused today and did not understand why the drool from her mouth. She has a chronic cough. Unable to get any further history from patient due to confusion. - Related Data Allergies/Adverse Reactions: aspirin [Aspirin] Adverse Reaction (Severe, Verified 10/29/14 09:31) esoph bleeding morphine [Morphine] Adverse Reaction (Intermediate, Verified 10/29/14 09:31) bad dreams Past Medical History - Social History Smoking Status: Current Every Day Smoker Family History: Arthritis, Hypertension, Malignancy. denies: CAD, CVA, DM, Hyperlipidemia, Thyroid Disfunction - Past Medical History Cardiac Medical History: Reports: Hx Heart Attack - Patient states she was told that she had a small one, Hx Hypertension Pulmonary Medical History: Reports: Hx Asthma, Hx Bronchitis, Hx COPD Denies: Hx Pneumonia Neurological Medical History: Reports: Hx Seizures - 2012 - was on dilantin Renal/ Medical History: Reports: Hx Kidney Stones. Denies: Hx Peritoneal Dialysis GI Medical History: Reports: Hx Gastroesophageal Reflux Disease, Hx Ulcer Musculoskeletal Medical History: Reports Hx Arthritis, Reports Hx Musculoskeletal Deformity, Reports Hx Musculoskeletal Trauma Psychiatric Medical History: Reports: Hx Depression Other: chronic pain Traumatic Medical History: Reports: Hx Fractures Past Surgical History: Reports: Hx Oral Surgery, Hx Orthopedic Surgery - right foot; right hand, Hx Tubal Ligation - Immunizations Immunizations up to date: No Hx Diphtheria, Pertussis, Tetanus Vaccination: No Hx Pneumococcal Vaccination: 05/16/14 Review of Systems - Review of Systems -: Yes ROS unobtainable due to patient's medical condition Physical Exam - Vital signs Vitals: Resp Pulse Ox 53 H 94 12/02/17 17:15 12/02/17 17:15 Interpretation: Tachycardic, Hypoxic - Notes Notes: PHYSICAL EXAMINATION: GENERAL: Ill-appearing, tachypneic, confused. HEAD: Atraumatic, normocephalic. EYES: Pupils dilated and reactive to light, extraocular movements intact, conjunctiva are normal, cornea is hazy. ENT: Nares patent, oropharynx clear without exudates. Dry mucous membranes. NECK: Normal range of motion, supple without lymphadenopathy LUNGS: Breath sounds diminished bilaterally with diffuse rhonchi and wheezing, tachypnea, moderate respiratory distress HEART: Tachycardia, regular rhythm without murmurs ABDOMEN: Soft, nontender, nondistended abdomen. No guarding, no rebound. No masses appreciated. Female : deferred Musculoskeletal: Normal range of motion, no pitting or edema. No cyanosis. NEUROLOGICAL: Cranial nerves grossly intact. Does not answer most questions due to confusion and respiratory distress PSYCH: Anxious SKIN: Warm, diaphoretic, normal turgor, mottled. Course - Re-evaluation Re-evalutation: 12/02/17 18:10 Placed on BiPAP immediately upon arrival with significant improvement. Patient altered upon arrival suspicious for hypercarbia. Surprisingly, she has hypocarbia 12/02/17 20:17 Patient became much more awake after BiPAP, smiling. No significant change after 1 hour of BiPAP. Lactic acid elevated with leukocytosis. Covered with antibiotics for sepsis/possible pneumonia. Only 1 L fluids ordered as proBNP also elevated. No prior echo seen in the chart. No known history of congestive heart failure. Chest x-ray clear. No diuresis indicated. Buckley placed. Tachycardia improved. Patient has mild dehydration which could be masking infiltrates of early pneumonia on chest x-ray. Discussed with hospitalist for admission. - Vital Signs Vital signs: Temp Pulse Resp BP Pulse Ox 102.0 F H 39 H 153/110 H 97 12/02/17 19:20 12/02/17 19:20 12/02/17 19:20 12/02/17 19:20 - Laboratory Result Diagrams: 12/02/17 17:30 12/02/17 18:13 Laboratory results interpreted by me: 12/02/17 12/02/17 12/02/17 17:30 17:30 17:30 WBC 25.5 H RBC 5.49 H Hgb 17.0 H Hct 48.8 H RDW 14.3 H Seg Neuts % (Manual) 82 H Lymphocytes % (Manual) 11 L Monocytes % (Manual) 2 L Abs Neuts (Manual) 21.9 H Carbonic Acid 0.92 L ABG pH 7.61 H* ABG pCO2 30.7 L ABG pO2 56.9 L ABG HCO3 30.1 H ABG Total CO2 31.0 H Sodium Potassium Chloride Anion Gap BUN Creatinine Est GFR ( Amer) Est GFR (Non-Af Amer) Glucose Lactic Acid 3.7 H Calcium Magnesium Total Bilirubin Direct Bilirubin AST ALT Alkaline Phosphatase NT-Pro-B Natriuret Pep Total Protein Urine Protein Urine Blood 12/02/17 12/02/17 12/02/17 18:13 18:13 18:50 WBC RBC Hgb Hct RDW Seg Neuts % (Manual) Lymphocytes % (Manual) Monocytes % (Manual) Abs Neuts (Manual) Carbonic Acid ABG pH ABG pCO2 ABG pO2 ABG HCO3 ABG Total CO2 Sodium 146.7 H Potassium 3.5 L Chloride 96 L Anion Gap 23 H BUN 69 H Creatinine 1.58 H Est GFR ( Amer) 42 L Est GFR (Non-Af Amer) 35 L Glucose 137 H Lactic Acid Calcium 10.3 H Magnesium 2.5 H Total Bilirubin 2.2 H Direct Bilirubin 1.3 H AST 120 H ALT 55 H Alkaline Phosphatase 138 H NT-Pro-B Natriuret Pep 2010 H Total Protein 8.7 H Urine Protein >=500 H Urine Blood LARGE H 12/02/17 19:06 WBC RBC Hgb Hct RDW Seg Neuts % (Manual) Lymphocytes % (Manual) Monocytes % (Manual) Abs Neuts (Manual) Carbonic Acid 0.91 L ABG pH 7.60 H* ABG pCO2 30.3 L ABG pO2 ABG HCO3 29.3 H ABG Total CO2 30.2 H Sodium Potassium Chloride Anion Gap BUN Creatinine Est GFR ( Amer) Est GFR (Non-Af Amer) Glucose Lactic Acid Calcium Magnesium Total Bilirubin Direct Bilirubin AST ALT Alkaline Phosphatase NT-Pro-B Natriuret Pep Total Protein Urine Protein Urine Blood Critical Care Note - Critical Care Note Total time excluding time spent on procedures (mins): 30 - Critical care time spent obtaining history from patient or surrogate, discussions with consultants , development of treatment plan with patient or surrogate, evaluation of patient 's response to treatment, examination of patient, ordering and performing treatments and interventions, ordering and review of laboratory studies, re- evaluation of patient's condition, ordering and review of radiographic studies and review of old charts Discharge - Discharge Clinical Impression: Acute respiratory failure Qualifiers: Respiratory failure complication: hypoxia Qualified Code(s): J96.01 - Acute respiratory failure with hypoxia Sepsis Qualifiers: Sepsis type: sepsis due to unspecified organism Qualified Code(s): A41.9 - Sepsis, unspecified organism Altered mental status Qualifiers: Altered mental status type: unspecified Qualified Code(s): R41.82 - Altered mental status, unspecified Condition: Serious Admitting Provider: Hospitalist Unit Admitted: ICU Referrals: EBONY GRADY DO [Primary Care Provider] - Follow up as needed
[2017-12-02 18:21] LABS: ABSOLUTE LYMPHOCYTES# (MANUAL) 3.1 10^3/uL (0.5-4.7); ABSOLUTE MONOCYTES # (MANUAL) 0.5 10^3/uL (0.1-1.4); ABSOLUTE NEUTROPHILS# (MANUAL) 21.9 10^3/uL (1.7-8.2); BAND NEUTROPHILS % (MANUAL) 4 % (3-5); BASOPHILS % (MANUAL) 0 % (0-2); EOSINOPHILS % (MANUAL) 0 % (0-6); LYMPHOCYTES % (MANUAL) 11 % (13-45); MONOCYTES % (MANUAL) 2 % (3-13); SEGMENTED NEUTROPHILS % (MAN) 82 % (42-78); TOTAL CELLS COUNTED 100
[2017-12-02 18:23] LABS: ANISOCYTOSIS SLIGHT; OVALOCYTES SLIGHT; PLATELET COMMENT ADEQUATE; POIKILOCYTOSIS SLIGHT
[2017-12-02 18:44] LABS: ALANINE AMINOTRANSFERASE 55 U/L (9-52); ALBUMIN 4.5 g/dL (3.5-5.0); ALKALINE PHOSPHATASE 138 U/L (38-126); ASPARTATE AMINO TRANSFERASE 120 U/L (14-36); BILIRUBIN,DIRECT 1.3 mg/dL (0.0-0.4); BILIRUBIN,TOTAL 2.2 mg/dL (0.2-1.3); BLOOD UREA NITROGEN 69 mg/dL (7-20); CALCIUM 10.3 mg/dL (8.4-10.2); CARBON DIOXIDE 28 mmol/L (22-30); CHLORIDE 96 mmol/L (98-107); GLUCOSE 137 mg/dL (75-110); POTASSIUM 3.5 mmol/L (3.6-5.0); SODIUM 146.7 mmol/L (137-145); TOTAL PROTEIN 8.7 g/dL (6.3-8.2)
[2017-12-02 18:47] LABS: ALCOHOL < 10 mg/dL (NONE DETECTED); ANION GAP 23 (5-19)
[2017-12-02] MEDS ORDERED: CEFTRIAXONE INJ 1000 MG VIAL IV ONE (18:47)
[2017-12-02] MEDS ORDERED: AZITHROMYCIN INJ 500 MG VIAL IV ONE (18:48)
[2017-12-02 18:59] LABS: TROPONIN I 0.052 ng/mL
[2017-12-02] MEDS ORDERED: ACETAMINOPHEN 650 MG SUPP.RECT PR ONE (19:11)
[2017-12-02 19:22] LABS: ARTERIAL BLOOD BASE EXCESS 8.3 mmol/L; ARTERIAL BLOOD H2CO3 0.91 mmol/L (1.05-1.35); ARTERIAL BLOOD HCO3 29.3 mmol/L (20-26); ARTERIAL BLOOD O2 SATURATION 97.6 % (94-98); ARTERIAL BLOOD PCO2 30.3 mmHg (35-45); ARTERIAL BLOOD PO2 81.8 mmHg (80-100); ARTERIAL BLOOD TOTAL CO2 30.2 mmol/L (21-25)
[2017-12-02 19:26] LABS: APPEARANCE,URINE SLIGHTLY-CLOUDY; BILIRUBIN,URINE NEGATIVE (NEGATIVE); GLUCOSE, URINE NEGATIVE (NEGATIVE); KETONES,URINE NEGATIVE (NEGATIVE); LEUKOCYTE ESTERASE,URINE NEGATIVE (NEGATIVE); NITRITE,URINE NEGATIVE (NEGATIVE); PROTEIN,URINE >=500 mg/dL (NEGATIVE); URINE SPECIFIC GRAVITY 1.018; UROBILINOGEN,URINE NEGATIVE mg/dL (<2.0)
[2017-12-02 19:29] LABS: COLOR,URINE YELLOW
[2017-12-02 19:39] LABS: ARTERIAL BLOOD FIO2 80
[2017-12-02 19:47] LABS: URINE AMPHETAMINES SCREEN NEGATIVE; URINE BARBITURATES SCREEN NEGATIVE; URINE BENZODIAZEPINES SCREEN UNCONFIRMED POSITIVE; URINE COCAINE SCREEN NEGATIVE; URINE MARIJUANA (THC) SCREEN UNCONFIRMED POSITIVE; URINE METHADONE SCREEN NEGATIVE; URINE PHENCYCLIDINE SCREEN NEGATIVE
[2017-12-02] MEDS ORDERED: MAG HYDROX/AL HYDROX/SIMETH SUSP 30 ML UDCUP PO PRN (20:37)
[2017-12-02] MEDS ORDERED: ONDANSETRON HCL INJ/PF 4 MG/2 ML SDV IV PRN (20:37)
[2017-12-02] MEDS ORDERED: ACETAMINOPHEN 325 MG TABLET PO PRN (20:37)
[2017-12-02] MEDS ORDERED: (PENDING PHARMACY ID) (Oxycodone Hcl/Acetaminophen [Oxycodone-Acetaminophen 10-325] 1 EACH PO PRN (20:40)
[2017-12-02] MEDS ORDERED: (PENDING PHARMACY ID) (Tizanidine Hcl [Zanaflex] 6 MG) PO PRN (20:40)
[2017-12-02] MEDS ORDERED: IPRATROPIUM/ALBUTEROL 0.5-2.5 MG/3 ML AMPUL NEB SCH (21:00)
[2017-12-02] MEDS ORDERED: ALPRAZOLAM 0.5 MG TABLET PO PRN (21:06)
[2017-12-02] MEDS ORDERED: TIZANIDINE HCL 4 MG TABLET PO PRN (21:07)
[2017-12-02] MEDS ORDERED: OXYMORPHONE HCL 30 MG PO SCH (22:00)
[2017-12-02] MEDS ORDERED: TRAZODONE HCL 50 MG TABLET PO SCH (22:00)
--- NOTE | 2017-12-02 22:13 | EKG REPORT ---
SEVERITY:- ABNORMAL ECG - SINUS RHYTHM RIGHT ATRIAL ABNORMALITY MINIMAL ST DEPRESSION, INFERIOR LEADS PROLONGED QT INTERVAL : Confirmed by: Alexander Contreras 02-Dec-2017 22:12:32
--- NOTE | 2017-12-02 22:13 | EKG REPORT ---
SEVERITY:- ABNORMAL ECG - SINUS TACHYCARDIA LAD, CONSIDER LEFT ANTERIOR FASCICULAR BLOCK ANTEROLATERAL INFARCT, AGE INDETERMINATE ST DEPRESSION, CONSIDER ISCHEMIA, INF LEADS BORDERLINE PROLONGED QT INTERVAL : Confirmed by: Alexander Contreras 02-Dec-2017 22:12:47
[2017-12-02] MEDS: GUAIFENESIN 600 MG TABLET.SA PO SCH (22:40)
[2017-12-02] MEDS: MONTELUKAST SODIUM 10 MG TABLET PO SCH (22:40)
[2017-12-02] MEDS: METOPROLOL TARTRATE 25 MG TABLET PO SCH (22:40)
[2017-12-02] MEDS: GABAPENTIN 300 MG CAPSULE PO SCH (22:40)
[2017-12-02] MEDS: METHYLPREDNISOLONE INJ 40 MG/1 ML SDV IV SCH (22:41)
[2017-12-02] MEDS: NORMAL SALINE 1000 ML 1,000 ML IV PRN (22:42)
[2017-12-02] MEDS ORDERED: LABETALOL HCL INJ 20 MG/4 ML DISP.SYRIN IV PRN (22:57)
--- NOTE | 2017-12-02 22:57 | PDOC H&P ---
History of Present Illness Admission Date/PCP: 12/02/17 20:57 EBONY GRADY DO Patient complains of: Shortness of breath History of Present Illness: TOM CAPPS is a 47 year old female with history of multiple medical problems that will be mentioned below presented to emergency room with a concern of dyspnea with associated congestive cough with inability to expectorate much, wheezing as well as fever with a T-max of 101 at home and chills. She denies any chest pain or palpitations. No nausea or vomiting or abdominal pain. No headache or dizziness or blurred vision. No dysuria oliguria hematuria or flank pain. No orthopnea or paroxysmal nocturnal dyspnea or lower extremity edema. Upon presentation to the emergency room, blood pressure was initially elevated 141/112 and later 157/113 respiratory rate was 53 and pulse oximetry was 89% on 2 L O2 by nasal cannula. She was in significant respiratory distress and was placed on BiPAP with good response. Pulse oximetry was up to 97 and later 100% on 80% FiO2. Respiratory rate was down to 33. She was initially febrile with a temperature of 102 and later on 1 1.5. Labs were remarkable for significant exactas of 25.5 with hemoglobin 17 hematocrit 48.8 with platelets of 319 and neutrophils of 82%. ABG showed pH 7.61 L 7.6, PCO2 30.7 later 30.3, PO2 of 56.9 and later 81.8, bicarbonate 30.1 L 29.3 and O2 sat is 94% and later 97.6% percent FiO2. CMP revealed mild hypernatremia and borderline potassium of 3.5 hypochloremia of 96 and a CO2 of 28. Anion gap was 23 with a BUN of 69 creatinine 1.58 and GFR 35 calcium of 10.3 magnesium of 2.5. LFTs were elevated and BNP was 2010 with total protein of 8.7. Urinalysis showed more than 500 protein 3 WBCs and 4 hyaline casts with trace bacteria. Leukocyte esterase and nitrite were both negative. Urine drug screen came back positive for benzodiazepines and marijuana. Chest x-ray showed no acute cardiopulmonary disease. EKG shows sinus tachycardia with left anterior fascicular block and later on normal sinus rhythm with a rate of 98 with right axis deviation and prolonged QT interval (QTC 511 MS). The patient was given hydration with a liter bolus of IV normal saline, IV Rocephin and Zithromax, DuoNeb's and 975 mg of PA Tylenol. The patient will be admitted to an ICU bed for further evaluation and management. Past Medical History Cardiac Medical History: Reports: Myocardial Infarction - Patient states she was told that she had a small one, Hypertension Pulmonary Medical History: Reports: Asthma, Bronchitis, Chronic Obstructive Pulmonary Disease (COPD), Sleep Apnea - Has not been using her BiPAP for the last few nights Denies: Pneumonia Neurological Medical History: Reports: Seizures - 2012 - was on dilantin GI Medical History: Reports: Gastroesophageal Reflux Disease Musculoskeltal Medical History: Reports: Arthritis Psychiatric Medical History: Reports: Depression Hematology: Denies: Anemia Past Surgical History Past Surgical History: Reports: Orthopedic Surgery - right foot; right hand, Tubal Ligation Social History Smoking Status: Current Every Day Smoker Frequency of Alcohol Use: None Hx Recreational Drug Use: No Hx Prescription Drug Abuse: No Family History Family History: Arthritis, Hypertension, Malignancy. denies: CAD, CVA, DM, Hyperlipidemia, Thyroid Disfunction Parental Family History Reviewed: Yes Children Family History Reviewed: Yes Sibling(s) Family History Reviewed.: Yes Medication/Allergy Home Medications: Budesonide/Formoterol Fumarate [Symbicort HFA 160-4.5 mcg Inhaler 6 gm] 2 puff IH Q12 03/25/14 Oxycodone HCl/Acetaminophen [Oxycodone-Acetaminophen 10-325] 1 each PO Q6 PRN Alprazolam [Xanax] 1 mg PO Q8HP PRN 12/02/17 Amlodipine Besylate [Norvasc 5 mg Tablet] 5 mg PO DAILY 12/02/17 Estrogen,Con/M-Progest Acet [Prempro 0.625-5 mg Tablet] 1 each PO DAILY Gabapentin [Neurontin 300 mg Capsule] 600 mg PO Q8 12/02/17 Hydrochlorothiazide [Hydrodiuril 25 mg Tablet] 50 mg PO QAM 12/02/17 Lidocaine [Lidoderm 5% (700 mg) Transdermal Patch] 1 patch TP DAILY 12/02/17 Metoprolol Tartrate [Lopressor 25 mg Tablet] 25 mg PO Q12 12/02/17 Montelukast Sodium [Singulair 10 mg Tablet] 10 mg PO QHS 12/02/17 Nitroglycerin [Nitrostat 0.4 mg (1/150 Gr) Tabs 25/Bottle] 1 tab SL Q5MP PRN Nortriptyline HCl [Pamelor 25 Mg Capsule] 25 mg PO QHS 12/02/17 Nystatin [Mycostatin Cream] 1 applic TP QID 12/02/17 Oxymorphone HCl [Oxymorphone HCl ER] 30 mg PO Q12 12/02/17 Pantoprazole Sodium [Protonix] 40 mg PO BID 12/02/17 Potassium Chloride [Klor-Con M20] 40 meq PO DAILY 12/02/17 Roflumilast [Daliresp 500 mcg Tablet] 500 mcg PO DAILY 12/02/17 Tizanidine HCl [Zanaflex] 6 mg PO Q8HP PRN 12/02/17 Trazodone HCl [Desyrel 50 mg Tablet] 50 mg PO QHS 12/02/17 Allergies/Adverse Reactions: aspirin [Aspirin] Adverse Reaction (Severe, Verified 10/29/14 09:31) esoph bleeding morphine [Morphine] Adverse Reaction (Intermediate, Verified 10/29/14 09:31) bad dreams Review of Systems Review of Systems: As per history of present illness. All pertinent systems were reviewed above. Constitutional, HEENT, cardiovascular, respiratory, GI, , musculoskeletal, neuro, psychiatric, endocrine, integumentary and hematologic systems were reviewed and are otherwise negative/unremarkable except for positive findings mentioned above in the HPI. Physical Exam Vital Signs: Temp Pulse Resp BP Pulse Ox 101.5 F H 38 H 138/106 H 100 12/02/17 21:41 12/02/17 21:41 12/02/17 21:40 12/02/17 21:41 Exam: enerally: Acutely ill middle-aged female in moderate respiratory distress on BiPAP Vital signs-as listed Head - atraumatic, normocephalic. Pupils - equal, round and reactive to light and accommodation. Extraocular movements are intact. No scleral icterus. Oropharynx - moist mucous membranes and tongue. BiPAP mask in place Neck - supple. No JVD. Carotid pulses 2+ bilaterally. No carotid bruits. No palpable thyromegaly or lymphadenopathy. Cardiovascular - regular rate and rhythm. Normal S1 and S2. No murmurs, gallops or rubs. Lungs -diffuse expiratory wheezes with tight expiratory airflow and harsh vesicular breathing Abdomen - soft and nontender. Positive bowel sounds. No palpable organomegaly or masses. Extremities - no pitting edema, clubbing or cyanosis. Neuro - grossly non-focal. Skin - no rashes. Breast, pelvic and rectal - deferred Results Impressions: Chest X-Ray 12/02/17 17:28 IMPRESSION: NO ACUTE RADIOGRAPHIC FINDING IN THE CHEST. Assessment & Plan - Diagnosis (1) Obstructive chronic bronchitis with exacerbation Is this a current diagnosis for this admission?: Yes Plan: The patient will be admitted to an ICU bed and will be placed on IV steroid therapy with IV Solu-Medrol as well as nebulized bronchodilator therapy with duonebs q.i.d. and q.4 hours p.r.n., mucolytic therapy with Mucinex and antibiotic therapy with IV Rocephin and Zithromax. Sputum Gram stain culture and sensitivity will be obtained. O2 protocol will be followed. (2) Acute respiratory failure Qualifiers: Respiratory failure complication: hypoxia Qualified Code(s): J96.01 - Acute respiratory failure with hypoxia Is this a current diagnosis for this admission?: Yes Plan: The patient will be continued on BiPAP I will cut down the rate given her alkalosis. O2 protocol will be followed. (3) Sepsis Qualifiers: Sepsis type: sepsis due to unspecified organism Qualified Code(s): A41.9 - Sepsis, unspecified organism Is this a current diagnosis for this admission?: Yes Plan: The patient was hydrated with IV normal saline and was given IV Rocephin and Zithromax which will be continued for potential underlying pneumonia causing COPD exacerbation especially given elevated lactic acid. (4) Acute kidney injury Is this a current diagnosis for this admission?: Yes Plan: The patient will be gently hydrated with IV normal saline given slightly elevated BNP and BMI she will be followed. (5) Altered mental status Qualifiers: Altered mental status type: unspecified Qualified Code(s): R41.82 - Altered mental status, unspecified Is this a current diagnosis for this admission?: Yes Plan: This is likely related to hypoxia and is currently improving (6) Hypertension Qualifiers: Hypertension type: essential hypertension Qualified Code(s): I10 - Essential (primary) hypertension Is this a current diagnosis for this admission?: Yes Plan: The patient will be placed on p.o. Norvasc and Lopressor and as needed IV labetalol (7) GERD (gastroesophageal reflux disease) Qualifiers: Esophagitis presence: esophagitis presence not specified Qualified Code(s) : K21.9 - Gastro-esophageal reflux disease without esophagitis Is this a current diagnosis for this admission?: No Plan: PPI therapy will be resumed (8) DVT prophylaxis Is this a current diagnosis for this admission?: Yes Plan: Subcutaneous Lovenox - Time Critical Time spent with patient: 35 or more minutes - 50 minutes - Plan Summary Plan Summary: The plan of care was discussed in details with the patient. I answered all questions. The patient agreed to proceed with the above-mentioned plan. The patient is presumably full code. This note was created by [employer] dictating software and may contain typo errors that may have not been proofread. Critical care time spent: 50 minutes
[2017-12-03] MEDS: OXYCODONE HCL IR 5 MG TABLET PO PRN ×2 (01:40→18:29)
[2017-12-03 02:39] LABS: ARTERIAL BLOOD BASE EXCESS 8.1 mmol/L; ARTERIAL BLOOD H2CO3 1.28 mmol/L (1.05-1.35); ARTERIAL BLOOD HCO3 32.3 mmol/L (20-26); ARTERIAL BLOOD O2 SATURATION 98.4 % (94-98); ARTERIAL BLOOD PCO2 42.6 mmHg (35-45); ARTERIAL BLOOD PO2 112.3 mmHg (80-100); ARTERIAL BLOOD TOTAL CO2 33.6 mmol/L (21-25)
[2017-12-03 02:40] LABS: ARTERIAL BLOOD FIO2 80%
[2017-12-03] MEDS: METHYLPREDNISOLONE INJ 40 MG/1 ML SDV IV SCH ×3 (06:12→20:36)
[2017-12-03] MEDS: LANSOPRAZOLE 30 MG TAB.RAP.DR PO SCH (06:13)
[2017-12-03] MEDS: GABAPENTIN 300 MG CAPSULE PO SCH ×3 (06:14→22:08)
[2017-12-03 06:35] LABS: ABSOLUTE LYMPHOCYTES (AUTO) 1.4 10^3/uL (0.5-4.7); ABSOLUTE MONOCYTES (AUTO) 0.4 10^3/uL (0.1-1.4); BASOPHILS % (AUTO) 0.1 % (0-2); HEMATOCRIT 40.6 % (36.0-47.0); LYMPHOCYTES % (AUTO) 8.7 % (13-45); MEAN CORPUSCULAR HEMOGLOBIN 31.6 pg (27.0-33.4); MEAN CORPUSCULAR HGB CONC 35.3 g/dL (32.0-36.0); MEAN CORPUSCULAR VOLUME 90 fl (80-97); MONOCYTES % (AUTO) 2.4 % (3-13); PLATELET COUNT 189 10^3/uL (150-450); RED BLOOD COUNT 4.53 10^6/uL (3.72-5.28); RED CELL DISTRIBUTION WIDTH 14.2 % (11.5-14.0); SEGMENTED NEUTROPHILS % (AUTO) 88.8 % (42-78); TOTAL CELLS COUNTED % (AUTO) 100 %; WHITE BLOOD COUNT 15.8 10^3/uL (4.0-10.5)
[2017-12-03 06:39] LABS: HEMOGLOBIN 14.3 g/dL (12.0-15.5)
[2017-12-03 06:47] LABS: ALANINE AMINOTRANSFERASE 51 U/L (9-52); ALBUMIN 3.7 g/dL (3.5-5.0); ALKALINE PHOSPHATASE 105 U/L (38-126); ANION GAP 12 (5-19); ASPARTATE AMINO TRANSFERASE 68 U/L (14-36); BILIRUBIN,DIRECT 0.6 mg/dL (0.0-0.4); BLOOD UREA NITROGEN 61 mg/dL (7-20); CALCIUM 8.9 mg/dL (8.4-10.2); CARBON DIOXIDE 34 mmol/L (22-30); CHLORIDE 99 mmol/L (98-107); GLUCOSE 144 mg/dL (75-110); SODIUM 144.9 mmol/L (137-145); TOTAL PROTEIN 7.2 g/dL (6.3-8.2)
[2017-12-03] MEDS: NORMAL SALINE 1000 ML 1,000 ML IV PRN ×2 (07:49→18:30)
[2017-12-03 08:30] LABS: ARTERIAL BLOOD BASE EXCESS 7.8 mmol/L; ARTERIAL BLOOD H2CO3 1.29 mmol/L (1.05-1.35); ARTERIAL BLOOD O2 SATURATION 96.8 % (94-98); ARTERIAL BLOOD PCO2 42.9 mmHg (35-45); ARTERIAL BLOOD PH 7.49 (7.35-7.45); ARTERIAL BLOOD PO2 82.8 mmHg (80-100); ARTERIAL BLOOD TOTAL CO2 33.3 mmol/L (21-25)
[2017-12-03 08:40] LABS: ARTERIAL BLOOD FIO2 60%
[2017-12-03] MEDS ORDERED: NORMAL SALINE 1000 ML 1,000 ML IV ONE (09:01)
[2017-12-03] MEDS ORDERED: VANCOMYCIN HCL 0 MG in DEXTROSE 5%-WATER 250 ML IV NR (09:15)
[2017-12-03] MEDS: POTASSI CL 20 MEQ/50 ML RIDER 20 MEQ/50 ML RTUPB IV SCH ×3 (09:37→14:15)
[2017-12-03] MEDS: ENOXAPARIN SODIUM INJ 40 MG/0.4 ML DISP.SYRIN SUBCUT SCH (09:38)
[2017-12-03] MEDS ORDERED: (PENDING PHARMACY ID) (Roflumilast [Daliresp 500 Mcg Tablet] 500 MCG) PO SCH (10:00)
[2017-12-03] MEDS ORDERED: M PROGEST ACET PO SCH (10:00)
[2017-12-03] MEDS ORDERED: ESTROGEN CON PO SCH (10:00)
[2017-12-03] MEDS ORDERED: CEFTRIAXONE SODIUM 2,000 MG in DEXTROSE 5%-WATER 100 ML IV SCH (10:00)
[2017-12-03] MEDS ORDERED: CEFTRIAXONE 2 GM/D5W RTU 2 GM/50 ML RTUPB IV SCH ×2 (10:00→18:00)
[2017-12-03] MEDS ORDERED: VANCOMYCIN HCL 750 MG in DEXTROSE 5%-WATER 250 ML IV SCH (10:00)
[2017-12-03] MEDS: CEFEPIME 2 GM/D5W RTU 2 GM/50 ML RTUPB IV SCH ×2 (10:01→23:03)
[2017-12-03] MEDS: AMLODIPINE BESYLATE 5 MG TABLET PO SCH (11:28)
[2017-12-03] MEDS: METOPROLOL TARTRATE 25 MG TABLET PO SCH ×2 (11:28→22:08)
[2017-12-03] MEDS: ROFLUMILAST 500 MCG TABLET PO SCH (11:28)
[2017-12-03] MEDS: GUAIFENESIN 600 MG TABLET.SA PO SCH ×2 (11:28→22:09)
[2017-12-03 13:46] LABS: ANION GAP 14 (5-19); BLOOD UREA NITROGEN 52 mg/dL (7-20); CALCIUM 8.7 mg/dL (8.4-10.2); CARBON DIOXIDE 27 mmol/L (22-30); CHLORIDE 104 mmol/L (98-107); GLUCOSE 146 mg/dL (75-110); POTASSIUM 3.3 mmol/L (3.6-5.0); SODIUM 145.4 mmol/L (137-145)
[2017-12-03 14:19] LABS: CREATINE KINASE MB 0.6 ng/mL (<4.55); TROPONIN I 0.013 ng/mL
--- NOTE | 2017-12-03 16:53 | PDOC PROGRESS REPORT ---
Subjective Progress Note for:: 12/03/17 Subjective:: Patient was unable to speak with me when I examined her this morning, she was on BiPAP. She would awaken briefly to follow a command such as wiggle her toes and then would go back to sleep. She would arouse briefly to voice and soft touch. Later today I reexamined the patient as she was awake and off of BiPAP and wanting to leave AGAINST MEDICAL ADVICE. She was pain-free. Her breathing was improving, having some shortness of breath, cough, no sputum, no fever. Is feeling extremely anxious and angry and wants to leave the hospital that she agrees to stay after I discussed how sick she is. Her roommate is at the bedside and states that for the past few days she has been getting more and more lethargic, not breathing well, not taking her meds as prescribed. He brought her to the ER. He is also trying to get her to stay in the hospital. Reason For Visit: ACUTE RESP FAILURE, COPD EXACERBATION, SEPSIS Physical Exam Vital Signs: Temp Pulse Resp BP Pulse Ox 98.6 F 54 L 24 H 145/85 H 98 12/03/17 14:00 12/03/17 14:00 12/03/17 14:00 12/03/17 14:00 12/03/17 14:00 Intake & Output 12/02/17 12/03/17 12/04/17 06:59 06:59 06:59 Output Total 285 Balance -285 Weight 57.6 kg General appearance: PRESENT: cooperative, mild distress, thin Head exam: PRESENT: atraumatic, normocephalic Eye exam: ABSENT: conjunctival injection, scleral icterus Ear exam: PRESENT: normal external ear exam Mouth exam: PRESENT: moist, neck supple Respiratory exam: PRESENT: decreased breath sounds, rhonchi, unlabored, wheezes. ABSENT: rales Cardiovascular exam: PRESENT: RRR. ABSENT: systolic murmur Pulses: PRESENT: normal radial pulses GI/Abdominal exam: PRESENT: normal bowel sounds, soft. ABSENT: distended, firm , guarding, tenderness Rectal exam: PRESENT: deferred Extremities exam: ABSENT: pedal edema Neurological exam: PRESENT: alert, awake, oriented to person, oriented to place , oriented to situation, CN II-XII grossly intact. ABSENT: oriented to time Psychiatric exam: PRESENT: agitated, anxious Skin exam: PRESENT: dry, intact, warm Results Laboratory Results: 12/03/17 06:15 12/03/17 12:48 12/02/17 12/03/17 12/03/17 22:05 02:25 06:15 WBC 15.8 H RBC 4.53 Hgb 14.3 D Hct 40.6 MCV 90 MCH 31.6 MCHC 35.3 RDW 14.2 H Plt Count 189 Seg Neutrophils % 88.8 H Lymphocytes % 8.7 L Monocytes % 2.4 L Eosinophils % 0.0 Basophils % 0.1 Absolute Neutrophils 14.0 H Absolute Lymphocytes 1.4 Absolute Monocytes 0.4 Absolute Eosinophils 0.0 Absolute Basophils 0.0 Carbonic Acid 1.28 HCO3/H2CO3 Ratio 25:1 ABG pH 7.50 H ABG pCO2 42.6 ABG pO2 112.3 H ABG HCO3 32.3 H ABG O2 Saturation 98.4 H ABG Base Excess 8.1 FiO2 80% Sodium Potassium Chloride Carbon Dioxide Anion Gap BUN Creatinine Est GFR ( Amer) Est GFR (Non-Af Amer) Glucose Lactic Acid 2.6 H Calcium Total Bilirubin AST ALT Alkaline Phosphatase Total Protein Albumin 12/03/17 12/03/17 12/03/17 06:15 08:20 11:00 WBC RBC Hgb Hct MCV MCH MCHC RDW Plt Count Seg Neutrophils % Lymphocytes % Monocytes % Eosinophils % Basophils % Absolute Neutrophils Absolute Lymphocytes Absolute Monocytes Absolute Eosinophils Absolute Basophils Carbonic Acid 1.29 HCO3/H2CO3 Ratio 24:1 ABG pH 7.49 H ABG pCO2 42.9 ABG pO2 82.8 ABG HCO3 32.0 H ABG O2 Saturation 96.8 ABG Base Excess 7.8 FiO2 60% Sodium 144.9 Potassium 3.0 L* Chloride 99 Carbon Dioxide 34 H Anion Gap 12 BUN 61 H Creatinine 1.49 H Est GFR ( Amer) 45 L Est GFR (Non-Af Amer) 37 L Glucose 144 H Lactic Acid 1.8 Calcium 8.9 Total Bilirubin 1.0 AST 68 H ALT 51 Alkaline Phosphatase 105 Total Protein 7.2 Albumin 3.7 12/03/17 12:48 WBC RBC Hgb Hct MCV MCH MCHC RDW Plt Count Seg Neutrophils % Lymphocytes % Monocytes % Eosinophils % Basophils % Absolute Neutrophils Absolute Lymphocytes Absolute Monocytes Absolute Eosinophils Absolute Basophils Carbonic Acid HCO3/H2CO3 Ratio ABG pH ABG pCO2 ABG pO2 ABG HCO3 ABG O2 Saturation ABG Base Excess FiO2 Sodium 145.4 H Potassium 3.3 L Chloride 104 Carbon Dioxide 27 Anion Gap 14 BUN 52 H Creatinine 1.15 Est GFR ( Amer) > 60 Est GFR (Non-Af Amer) 50 L Glucose 146 H Lactic Acid Calcium 8.7 Total Bilirubin AST ALT Alkaline Phosphatase Total Protein Albumin 12/03/17 12/03/17 12/03/17 06:15 12:48 12:48 Creatine Kinase 124 CK-MB (CK-2) 0.60 Troponin I 0.013 NT-Pro-B Natriuret Pep 1710 H Impressions: Chest X-Ray 12/02/17 17:28 IMPRESSION: NO ACUTE RADIOGRAPHIC FINDING IN THE CHEST. Assessment & Plan - Diagnosis (1) Sepsis Qualifiers: Sepsis type: sepsis due to unspecified organism Qualified Code(s): A41.9 - Sepsis, unspecified organism Is this a current diagnosis for this admission?: Yes Plan: Patient was admitted to the hospital meeting criteria for sepsis. She had elevated white blood cell count, elevated respiratory rate, lactic acid level was normal. She was BiPAP dependent. She has at least bronchitis and possibly pneumonia. She has been treated with broad-spectrum antibiotics. And IV fluid hydration. Overall improving. (2) Acute hypoxemic respiratory failure Is this a current diagnosis for this admission?: Yes Plan: Patient has COPD and has a COPD exacerbation and this is likely the etiology of her acute hypoxemic respiratory failure. She has been BiPAP dependent until the last few hours. She is able to hold her sats on nasal cannula oxygen now. Her respiratory effort and rate have improved. We will continue to treat COPD with exacerbation and for a bronchitis versus a pneumonia and monitor her carefully. (3) COPD with exacerbation Is this a current diagnosis for this admission?: Yes Plan: Patient will continue with nasal cannula oxygen as needed for hypoxemia, she will also have bronchodilators available. She is on IV steroids 60 mg of Solu- Medrol IV every 12 hours. (4) Toxic metabolic encephalopathy Is this a current diagnosis for this admission?: Yes Plan: On admission patient was obtunded. She had marijuana and benzodiazepine in her tox screen. She has benzodiazepine, Xanax, on her med list. Very possible that she was not using her medications correctly. Of note she did not have opioids in her urine drug screen and her roommate states that as she was confused and obtunded over the last few days she was not taking the medication. She has now awakened and is oriented to person place and situation though she is unable to recall who the current president is or who the year is. She is overall much improved. Will restart her sedating medications slowly with caution. (5) Anxiety disorder Is this a current diagnosis for this admission?: Yes Plan: Patient is prescribed Xanax 3 times daily at home and this is been ordered. There is also an order for her nurse to hold the medication for sedation or confusion and call the doctor. (6) Acute kidney injury Is this a current diagnosis for this admission?: Yes Plan: This is likely prerenal related to dehydration. Acute kidney injury has improved with hydration, hydration will continue, BUN and creatinine will be checked again in the morning. Urine culture is pending. (7) Pneumonia Is this a current diagnosis for this admission?: Yes Plan: Patient has either an early pneumonia or bronchitis. Initially she was on ceftriaxone and azithromycin and secondary to sepsis I changed her antibiotics to vancomycin and cefepime. At this point there is no evidence of staph infection and she really improved on the ceftriaxone and azithromycin. I will continue her on those antibiotics at this time. Cultures are all pending. (8) GERD (gastroesophageal reflux disease) Qualifiers: Esophagitis presence: esophagitis presence not specified Qualified Code(s) : K21.9 - Gastro-esophageal reflux disease without esophagitis Is this a current diagnosis for this admission?: No Plan: Patient's PPI has been restarted. (9) Hypertension Qualifiers: Hypertension type: essential hypertension Qualified Code(s): I10 - Essential (primary) hypertension Is this a current diagnosis for this admission?: Yes Plan: Now that she is off of BiPAP and awake we will restart her antihypertensives as her blood pressure is starting to trend high. (10) Elevated troponin Is this a current diagnosis for this admission?: Yes Plan: Troponin slightly elevated on admission, has trended down, patient does not have known coronary disease and she will be advised to have close follow-up with her primary care provider for this and her other medical problems. (11) Chronic pain syndrome Is this a current diagnosis for this admission?: Yes Plan: She states that she has multiple chronic pain problems. Her primary care doctor prescribes her opiates. On a long-acting and short acting opiate. I am starting her short acting back with instructions to the nurse to hold for sedation or confusion and call MD. (12) Opiate dependence Is this a current diagnosis for this admission?: Yes Plan: Secondary to long-term use. Will use these judiciously while in the hospital and then discharge her back to the care of her PCP. Will not start long-acting at this point. - Time Time Spent with patient: 35 or more minutes Medications reviewed and adjusted accordingly: Yes Anticipated discharge: Home - Inpatient Certification Based on my medical assessment, after consideration of the patient's comorbidities, presenting symptoms, or acuity I expect that the services needed warrant INPATIENT care.: Yes I certify that my determination is in accordance with my understanding of Medicare's requirements for reasonable and necessary INPATIENT services [42 CFR 412.3e].: Yes Medical Necessity: Need Close Monitoring Due to Risk of Patient Decompensation, Need For IV Fluids, Need for IV Antibiotics - Plan Summary Plan Summary: 1) Obstructive chronic bronchitis with exacerbation Is this a current diagnosis for this admission?: Yes Plan: The patient will be admitted to an ICU bed and will be placed on IV steroid therapy with IV Solu-Medrol as well as nebulized bronchodilator therapy with duonebs q.i.d. and q.4 hours p.r.n., mucolytic therapy with Mucinex and antibiotic therapy with IV Rocephin and Zithromax. Sputum Gram stain culture and sensitivity will be obtained. O2 protocol will be followed. (2) Acute respiratory failure Qualifiers: Respiratory failure complication: hypoxia Qualified Code(s): J96.01 - Acute respiratory failure with hypoxia Is this a current diagnosis for this admission?: Yes Plan: The patient will be continued on BiPAP I will cut down the rate given her alkalosis. O2 protocol will be followed. (3) Sepsis Qualifiers: Sepsis type: sepsis due to unspecified organism Qualified Code(s): A41.9 - Sepsis, unspecified organism Is this a current diagnosis for this admission?: Yes Plan: The patient was hydrated with IV normal saline and was given IV Rocephin and Zithromax which will be continued for potential underlying pneumonia causing COPD exacerbation especially given elevated lactic acid. (4) Acute kidney injury Is this a current diagnosis for this admission?: Yes Plan: The patient will be gently hydrated with IV normal saline given slightly elevated BNP and BMI she will be followed. (5) Altered mental status Qualifiers: Altered mental status type: unspecified Qualified Code(s): R41.82 - Altered mental status, unspecified Is this a current diagnosis for this admission?: Yes Plan: This is likely related to hypoxia and is currently improving (6) Hypertension Qualifiers: Hypertension type: essential hypertension Qualified Code(s): I10 - Essential (primary) hypertension Is this a current diagnosis for this admission?: Yes Plan: The patient will be placed on p.o. Norvasc and Lopressor and as needed IV labetalol (7) GERD (gastroesophageal reflux disease) Qualifiers: Esophagitis presence: esophagitis presence not specified Qualified Code(s) : K21.9 - Gastro-esophageal reflux disease without esophagitis Is this a current diagnosis for this admission?: No Plan: PPI therapy will be resumed
[2017-12-03] MEDS ORDERED: POTASSIUM CHLORIDE 10 MEQ CAPSULE.ER PO ONE (17:45)
[2017-12-03] MEDS: ALPRAZOLAM 0.5 MG TABLET PO PRN (18:27)
[2017-12-03] MEDS: OXYCODONE-ACETAMINOPHEN 5-325 MG TABLET PO PRN (18:28)
[2017-12-03 18:57] LABS: CREATINE KINASE MB 0.98 ng/mL (<4.55)
[2017-12-03 19:20] LABS: TROPONIN I < 0.012 ng/mL
[2017-12-03] MEDS ORDERED: AZITHROMYCIN INJ 500 MG VIAL IV SCH (21:00)
[2017-12-03] MEDS: MONTELUKAST SODIUM 10 MG TABLET PO SCH (22:08)
[2017-12-04] MEDS: OXYCODONE HCL IR 5 MG TABLET PO PRN ×3 (01:13→13:20)
[2017-12-04] MEDS: OXYCODONE-ACETAMINOPHEN 5-325 MG TABLET PO PRN ×3 (01:14→13:21)
[2017-12-04 01:28] LABS: CREATINE KINASE MB 1.55 ng/mL (<4.55)
[2017-12-04 01:33] LABS: TROPONIN I < 0.012 ng/mL
[2017-12-04] MEDS: ALPRAZOLAM 0.5 MG TABLET PO PRN ×2 (03:27→13:22)
[2017-12-04] MEDS: LANSOPRAZOLE 30 MG TAB.RAP.DR PO SCH (05:02)
[2017-12-04] MEDS: GABAPENTIN 300 MG CAPSULE PO SCH ×3 (05:02→21:13)
[2017-12-04] MEDS: METHYLPREDNISOLONE INJ 40 MG/1 ML SDV IV SCH ×2 (05:02→13:20)
[2017-12-04 06:09] LABS: ABSOLUTE LYMPHOCYTES (AUTO) 1.6 10^3/uL (0.5-4.7); ABSOLUTE MONOCYTES (AUTO) 0.6 10^3/uL (0.1-1.4); ABSOLUTE NEUT (AUTO) 13.1 10^3/uL (1.7-8.2); BASOPHILS % (AUTO) 0.1 % (0-2); HEMATOCRIT 33.9 % (36.0-47.0); LYMPHOCYTES % (AUTO) 10.4 % (13-45); MEAN CORPUSCULAR HEMOGLOBIN 30.9 pg (27.0-33.4); MEAN CORPUSCULAR HGB CONC 34.7 g/dL (32.0-36.0); MEAN CORPUSCULAR VOLUME 89 fl (80-97); MONOCYTES % (AUTO) 4.1 % (3-13); PLATELET COUNT 202 10^3/uL (150-450); RED BLOOD COUNT 3.81 10^6/uL (3.72-5.28); RED CELL DISTRIBUTION WIDTH 13.7 % (11.5-14.0); SEGMENTED NEUTROPHILS % (AUTO) 85.4 % (42-78); TOTAL CELLS COUNTED % (AUTO) 100 %; WHITE BLOOD COUNT 15.3 10^3/uL (4.0-10.5)
[2017-12-04 06:24] LABS: ALANINE AMINOTRANSFERASE 35 U/L (9-52); ALKALINE PHOSPHATASE 76 U/L (38-126); ANION GAP 11 (5-19); ASPARTATE AMINO TRANSFERASE 41 U/L (14-36); BILIRUBIN,DIRECT 0.4 mg/dL (0.0-0.4); BILIRUBIN,TOTAL 0.4 mg/dL (0.2-1.3); BLOOD UREA NITROGEN 38 mg/dL (7-20); CALCIUM 8.6 mg/dL (8.4-10.2); CARBON DIOXIDE 28 mmol/L (22-30); CHLORIDE 99 mmol/L (98-107); GLUCOSE 132 mg/dL (75-110); SODIUM 137.7 mmol/L (137-145); TOTAL PROTEIN 6.1 g/dL (6.3-8.2)
[2017-12-04 06:34] LABS: POTASSIUM 2.9 mmol/L (3.6-5.0)
[2017-12-04 06:43] LABS: HEMOGLOBIN 11.8 g/dL (12.0-15.5)
[2017-12-04] MEDS ORDERED: POTASSIUM CHLORIDE 20 MEQ/50 ML RTU IV ONE (06:45)
[2017-12-04] MEDS: POTASSI CL 20 MEQ/50 ML RIDER 20 MEQ/50 ML RTUPB IV SCH ×2 (09:16→11:18)
[2017-12-04] MEDS: GUAIFENESIN 600 MG TABLET.SA PO SCH ×2 (09:16→21:12)
[2017-12-04] MEDS: AMLODIPINE BESYLATE 5 MG TABLET PO SCH (09:16)
[2017-12-04] MEDS: METOPROLOL TARTRATE 25 MG TABLET PO SCH (09:17)
[2017-12-04] MEDS: ENOXAPARIN SODIUM INJ 40 MG/0.4 ML DISP.SYRIN SUBCUT SCH (09:18)
[2017-12-04] MEDS ORDERED: IPRATROPIUM/ALBUTEROL 0.5-2.5 MG/3 ML AMPUL NEB PRN (09:30)
[2017-12-04 09:39] LABS: HEMATOCRIT 36.2 % (36.0-47.0); HEMOGLOBIN 12.5 g/dL (12.0-15.5); MEAN CORPUSCULAR HGB CONC 34.5 g/dL (32.0-36.0); MEAN CORPUSCULAR VOLUME 90 fl (80-97); PLATELET COUNT 200 10^3/uL (150-450); RED BLOOD COUNT 4.02 10^6/uL (3.72-5.28); WHITE BLOOD COUNT 16.1 10^3/uL (4.0-10.5)
[2017-12-04] MEDS: ROFLUMILAST 500 MCG TABLET PO SCH (11:18)
[2017-12-04] MEDS: IPRATROPIUM/ALBUTEROL 0.5-2.5 MG/3 ML AMPUL NEB SCH ×3 (12:59→20:21)
[2017-12-04] MEDS: CEFEPIME 2 GM/D5W RTU 2 GM/50 ML RTUPB IV SCH ×2 (13:18→21:27)
[2017-12-04 14:13] LABS: ANION GAP 12 (5-19); BLOOD UREA NITROGEN 29 mg/dL (7-20); CALCIUM 8.6 mg/dL (8.4-10.2); CARBON DIOXIDE 20 mmol/L (22-30); CHLORIDE 102 mmol/L (98-107); GLUCOSE 169 mg/dL (75-110); SODIUM 133.6 mmol/L (137-145)
[2017-12-04] MEDS ORDERED: NICOTINE 21 MG/24 HR PATCH.TD24 TD ONE (16:30)
--- NOTE | 2017-12-04 16:46 | PDOC PROGRESS REPORT ---
Subjective Progress Note for:: 12/04/17 Subjective:: She is feeling significantly better. She is not anxious or agitated. She is very glad she did state in the hospital and did not leave AMA. Her breathing is improved though she is still wheezing. Treatments seem to be helping her she thinks. She is still coughing. No fevers or chills. No sputum production today. No significant respiratory distress. No chest pain. No nausea vomiting constipation diarrhea or dysuria. Energy level is improving. Clear headed. Reason For Visit: ACUTE RESP FAILURE, COPD EXACERBATION, SEPSIS Physical Exam Vital Signs: Temp Pulse Resp BP Pulse Ox 97.4 F 83 17 102/56 L 98 12/04/17 15:51 12/04/17 15:51 12/04/17 15:51 12/04/17 15:51 12/04/17 15:51 Intake & Output 12/03/17 12/04/17 12/05/17 06:59 06:59 06:59 Intake Total 1999 459 Output Total 1984 900 Balance 15 -441 Weight 62.5 kg General appearance: PRESENT: no acute distress, cooperative, thin Eye exam: PRESENT: EOMI Ear exam: PRESENT: normal external ear exam Mouth exam: PRESENT: moist, tongue midline Respiratory exam: PRESENT: decreased breath sounds, unlabored, wheezes. ABSENT : rales, rhonchi Cardiovascular exam: PRESENT: RRR. ABSENT: systolic murmur Pulses: PRESENT: normal radial pulses GI/Abdominal exam: PRESENT: normal bowel sounds, soft. ABSENT: distended, guarding, tenderness Gentrourinary exam: PRESENT: indwelling catheter, other - Clear yellow urine Extremities exam: ABSENT: +1 edema Neurological exam: PRESENT: alert, awake, oriented to person, oriented to place , oriented to situation, CN II-XII grossly intact Psychiatric exam: PRESENT: appropriate affect. ABSENT: anxious Skin exam: PRESENT: dry, intact, warm Results Laboratory Results: 12/04/17 08:48 12/04/17 13:33 12/04/17 12/04/17 12/04/17 05:42 05:42 08:48 WBC 15.3 H 16.1 H RBC 3.81 4.02 Hgb 11.8 L D 12.5 Hct 33.9 L 36.2 MCV 89 90 MCH 30.9 31.0 MCHC 34.7 34.5 RDW 13.7 14.0 Plt Count 202 200 Seg Neutrophils % 85.4 H Lymphocytes % 10.4 L Monocytes % 4.1 Eosinophils % 0.0 Basophils % 0.1 Absolute Neutrophils 13.1 H Absolute Lymphocytes 1.6 Absolute Monocytes 0.6 Absolute Eosinophils 0.0 Absolute Basophils 0.0 Sodium 137.7 Potassium 2.9 L* Chloride 99 Carbon Dioxide 28 Anion Gap 11 BUN 38 H Creatinine 0.97 Est GFR ( Amer) > 60 Est GFR (Non-Af Amer) > 60 Glucose 132 H Calcium 8.6 Total Bilirubin 0.4 AST 41 H ALT 35 Alkaline Phosphatase 76 Total Protein 6.1 L Albumin 3.0 L 12/04/17 13:33 WBC RBC Hgb Hct MCV MCH MCHC RDW Plt Count Seg Neutrophils % Lymphocytes % Monocytes % Eosinophils % Basophils % Absolute Neutrophils Absolute Lymphocytes Absolute Monocytes Absolute Eosinophils Absolute Basophils Sodium 133.6 L Potassium 4.0 D Chloride 102 Carbon Dioxide 20 L Anion Gap 12 BUN 29 H Creatinine 0.91 Est GFR ( Amer) > 60 Est GFR (Non-Af Amer) > 60 Glucose 169 H Calcium 8.6 Total Bilirubin AST ALT Alkaline Phosphatase Total Protein Albumin 12/03/17 12/03/17 12/03/17 06:15 12:48 12:48 Creatine Kinase 124 CK-MB (CK-2) 0.60 Troponin I 0.013 NT-Pro-B Natriuret Pep 1710 H 12/03/17 12/03/17 12/04/17 18:07 18:07 00:18 Creatine Kinase 179 H 162 H CK-MB (CK-2) 0.98 Troponin I < 0.012 NT-Pro-B Natriuret Pep 12/04/17 12/04/17 00:18 05:42 Creatine Kinase CK-MB (CK-2) 1.55 Troponin I < 0.012 NT-Pro-B Natriuret Pep 2580 H Impressions: Chest X-Ray 12/02/17 17:28 IMPRESSION: NO ACUTE RADIOGRAPHIC FINDING IN THE CHEST. Assessment & Plan - Diagnosis (1) Sepsis Qualifiers: Sepsis type: sepsis due to unspecified organism Qualified Code(s): A41.9 - Sepsis, unspecified organism Is this a current diagnosis for this admission?: Yes Plan: Parameters improving. Still has elevated white blood cell count and pneumonia. Respiratory status is improving with a normal respiratory rate and now on nasal cannula oxygen. Actiq acid level was normal. We will continue to follow closely. (2) Acute hypoxemic respiratory failure Is this a current diagnosis for this admission?: Yes Plan: Overall improved. No longer BiPAP dependent. On 1 L of nasal cannula oxygen and we will wean to off as we are able. This is related to her pneumonia and COPD exacerbation. (3) COPD with exacerbation Is this a current diagnosis for this admission?: Yes Plan: Patient's air movement has improved. She still has expiratory wheezing. I have decreased her methylprednisolone to 60 mg IV every 12 hours. We will continue bronchodilators and antibiotics. (4) Toxic metabolic encephalopathy Is this a current diagnosis for this admission?: Yes Plan: This was secondary to possible misuse of medications and acute illness. Patient 's mental status has improved to her baseline. She remembers yesterday feeling very scared and having had scary dreams and scary memories from the past. She is no longer interested in leaving AGAINST MEDICAL ADVICE. (5) Anxiety disorder Is this a current diagnosis for this admission?: Yes Plan: Stable. We will continue her Xanax as ordered. 0.5 mg p.o. 8 hours as needed anxiety (6) Acute kidney injury Is this a current diagnosis for this admission?: Yes Plan: Creatinine has normalized with fluid administration. BUN is still elevated. She has gram-positive cocci in chains in her urine. Will continue current antibiotics. We will continue to monitor. (7) Pneumonia Is this a current diagnosis for this admission?: Yes Plan: Gram-negative rods growing in sputum. Will continue cefepime. (8) GERD (gastroesophageal reflux disease) Qualifiers: Esophagitis presence: esophagitis presence not specified Qualified Code(s) : K21.9 - Gastro-esophageal reflux disease without esophagitis Is this a current diagnosis for this admission?: No Plan: sTable, continue her PPI (9) Hypertension Qualifiers: Hypertension type: essential hypertension Qualified Code(s): I10 - Essential (primary) hypertension Is this a current diagnosis for this admission?: Yes Plan: Patient is a little hypotensive today with systolic of 102. We will hold her amlodipine. Continue metoprolol for now. Monitor carefully. (10) Elevated troponin Is this a current diagnosis for this admission?: Yes Plan: Trended back down to normal. Patient is chest pain-free. She would benefit from stress test when she is stable. (11) Chronic pain syndrome Is this a current diagnosis for this admission?: Yes Plan: Continue her oxycodone 10 mg with 325 of Tylenol as ordered, this is her outpatient dosing. I have not started her long-acting opiate and did not plan to do so at this point. Her pain is well controlled without it. (12) Opiate dependence Is this a current diagnosis for this admission?: Yes Plan: Secondary to long-term outpatient use. - Time Time Spent with patient: 25-34 minutes Medications reviewed and adjusted accordingly: Yes - Inpatient Certification Based on my medical assessment, after consideration of the patient's comorbidities, presenting symptoms, or acuity I expect that the services needed warrant INPATIENT care.: Yes I certify that my determination is in accordance with my understanding of Medicare's requirements for reasonable and necessary INPATIENT services [42 CFR 412.3e].: Yes
[2017-12-04] MEDS ORDERED: LIDOCAINE 5% (700 MG) TRANSDERMAL ADH..PATCH TP ONE (18:00)
[2017-12-04] MEDS ORDERED: LIDOCAINE 5% (700 MG) TRANSDERMAL ADH..PATCH ONE (18:07)
[2017-12-04] MEDS ORDERED: METOPROLOL TARTRATE 25 MG TABLET PO ONE (19:15)
[2017-12-04] MEDS ORDERED: NORMAL SALINE 1000 ML 1,000 ML IV ONE ×2 (19:15→20:17)
[2017-12-04] MEDS: METHYLPREDNISOLONE INJ 125 MG/2 ML SDV IV SCH (21:12)
[2017-12-04] MEDS: MONTELUKAST SODIUM 10 MG TABLET PO SCH (21:13)
[2017-12-05] MEDS: OXYCODONE-ACETAMINOPHEN 5-325 MG TABLET PO PRN ×3 (02:34→18:11)
[2017-12-05 03:21] LABS: HEMATOCRIT 33.1 % (36.0-47.0); HEMOGLOBIN 11.3 g/dL (12.0-15.5); MEAN CORPUSCULAR HEMOGLOBIN 30.8 pg (27.0-33.4); MEAN CORPUSCULAR HGB CONC 33.9 g/dL (32.0-36.0); MEAN CORPUSCULAR VOLUME 91 fl (80-97); PLATELET COUNT 206 10^3/uL (150-450); RED BLOOD COUNT 3.65 10^6/uL (3.72-5.28); RED CELL DISTRIBUTION WIDTH 14.1 % (11.5-14.0); WHITE BLOOD COUNT 13.7 10^3/uL (4.0-10.5)
[2017-12-05 03:29] LABS: ALANINE AMINOTRANSFERASE 37 U/L (9-52); ALKALINE PHOSPHATASE 74 U/L (38-126); ANION GAP 9 (5-19); ASPARTATE AMINO TRANSFERASE 35 U/L (14-36); BILIRUBIN,DIRECT 0.4 mg/dL (0.0-0.4); BILIRUBIN,TOTAL 0.4 mg/dL (0.2-1.3); BLOOD UREA NITROGEN 18 mg/dL (7-20); CALCIUM 8.5 mg/dL (8.4-10.2); CARBON DIOXIDE 22 mmol/L (22-30); CHLORIDE 109 mmol/L (98-107); GLUCOSE 179 mg/dL (75-110); POTASSIUM 3.3 mmol/L (3.6-5.0); TOTAL PROTEIN 5.8 g/dL (6.3-8.2)
[2017-12-05 03:43] LABS: ABSOLUTE LYMPHOCYTES# (MANUAL) 1.8 10^3/uL (0.5-4.7); ABSOLUTE MONOCYTES # (MANUAL) 1.1 10^3/uL (0.1-1.4); ABSOLUTE NEUTROPHILS# (MANUAL) 10.8 10^3/uL (1.7-8.2); BASOPHILS % (MANUAL) 0 % (0-2); EOSINOPHILS % (MANUAL) 0 % (0-6); LYMPHOCYTES % (MANUAL) 13 % (13-45); MONOCYTES % (MANUAL) 8 % (3-13); SEGMENTED NEUTROPHILS % (MAN) 79 % (42-78); TOTAL CELLS COUNTED 100
[2017-12-05 03:46] LABS: PLATELET COMMENT ADEQUATE; RBC MORPHOLOGY COMMENT NORMO-CYTIC/CHROMIC
[2017-12-05] MEDS: LANSOPRAZOLE 30 MG TAB.RAP.DR PO SCH (05:21)
[2017-12-05] MEDS: ALPRAZOLAM 0.5 MG TABLET PO PRN ×2 (05:21→18:10)
[2017-12-05] MEDS: GABAPENTIN 300 MG CAPSULE PO SCH ×3 (05:22→22:35)
[2017-12-05] MEDS: IPRATROPIUM/ALBUTEROL 0.5-2.5 MG/3 ML AMPUL NEB SCH ×4 (08:17→21:37)
[2017-12-05] MEDS ORDERED: LIDOCAINE 5% (700 MG) TRANSDERMAL ADH..PATCH TP SCH (10:00)
[2017-12-05] MEDS: ROFLUMILAST 500 MCG TABLET PO SCH (10:52)
[2017-12-05] MEDS: METOPROLOL TARTRATE 25 MG TABLET PO SCH ×2 (10:53→22:36)
[2017-12-05] MEDS: ENOXAPARIN SODIUM INJ 40 MG/0.4 ML DISP.SYRIN SUBCUT SCH (10:55)
[2017-12-05] MEDS: CEFEPIME 2 GM/D5W RTU 2 GM/50 ML RTUPB IV SCH ×2 (10:55→23:22)
[2017-12-05] MEDS: METHYLPREDNISOLONE INJ 125 MG/2 ML SDV IV SCH ×2 (10:56→23:20)
[2017-12-05] MEDS: NICOTINE 21 MG/24 HR PATCH.TD24 TD SCH (10:56)
[2017-12-05] MEDS: GUAIFENESIN 600 MG TABLET.SA PO SCH ×2 (10:56→22:35)
[2017-12-05] MEDS: OXYCODONE HCL IR 5 MG TABLET PO PRN ×2 (10:57→18:10)
[2017-12-05] MEDS: NORMAL SALINE 1000 ML 1,000 ML IV PRN ×2 (11:03→23:26)
--- NOTE | 2017-12-05 18:03 | PDOC PROGRESS REPORT ---
Subjective Progress Note for:: 12/05/17 Subjective:: Feels much better. No f/c, no chest pain or shortness of breath or palpitations. Cough better, no abdominal pain, no nausea vomiting. Reason For Visit: ACUTE RESP FAILURE, COPD EXACERBATION, SEPSIS Physical Exam Vital Signs: Temp Pulse Resp BP Pulse Ox 97.3 F 75 16 138/91 H 94 12/05/17 15:48 12/05/17 16:24 12/05/17 16:24 12/05/17 15:48 12/05/17 16:24 Intake & Output 12/04/17 12/05/17 12/06/17 06:59 06:59 06:59 Intake Total 1999 3804 681 Output Total 1984 5200 Balance 15 1396 681 Weight 62.5 kg 70.1 kg General appearance: PRESENT: no acute distress, cooperative, thin Eye exam: PRESENT: EOMI Ear exam: PRESENT: normal external ear exam Mouth exam: PRESENT: moist, tongue midline Respiratory exam: PRESENT: decreased breath sounds, unlabored, few wheezes. ABSENT: rales, rhonchi Cardiovascular exam: PRESENT: RRR. ABSENT: systolic murmur Pulses: PRESENT: normal radial pulses GI/Abdominal exam: PRESENT: normal bowel sounds, soft. ABSENT: distended, guarding, tenderness Gentrourinary exam: PRESENT: indwelling catheter, other - Clear yellow urine Extremities exam: ABSENT: edema Neurological exam: PRESENT: alert, awake, oriented to person, oriented to place , oriented to situation, CN II-XII grossly intact Psychiatric exam: PRESENT: appropriate affect. ABSENT: anxious Skin exam: PRESENT: dry, intact, warm Results Laboratory Results: 12/05/17 02:54 12/05/17 02:54 12/04/17 12/04/17 12/05/17 17:55 21:50 02:54 WBC 13.7 H RBC 3.65 L Hgb 11.3 L Hct 33.1 L MCV 91 MCH 30.8 MCHC 33.9 RDW 14.1 H Plt Count 206 Seg Neutrophils % Not Reportable Lymphocytes % Not Reportable Monocytes % Not Reportable Eosinophils % Not Reportable Basophils % Not Reportable Absolute Neutrophils Not Reportable Absolute Lymphocytes Not Reportable Absolute Monocytes Not Reportable Absolute Eosinophils Not Reportable Absolute Basophils Not Reportable Sodium Potassium Chloride Carbon Dioxide Anion Gap BUN Creatinine Est GFR ( Amer) Est GFR (Non-Af Amer) Glucose Lactic Acid 4.5 H 4.9 H Calcium Total Bilirubin AST ALT Alkaline Phosphatase Total Protein Albumin 12/05/17 12/05/17 12/05/17 02:54 02:54 16:47 WBC RBC Hgb Hct MCV MCH MCHC RDW Plt Count Seg Neutrophils % Lymphocytes % Monocytes % Eosinophils % Basophils % Absolute Neutrophils Absolute Lymphocytes Absolute Monocytes Absolute Eosinophils Absolute Basophils Sodium 140.0 Potassium 3.3 L Chloride 109 H Carbon Dioxide 22 Anion Gap 9 BUN 18 Creatinine 0.81 Est GFR ( Amer) > 60 Est GFR (Non-Af Amer) > 60 Glucose 179 H Lactic Acid 3.1 H 3.5 H Calcium 8.5 Total Bilirubin 0.4 AST 35 ALT 37 Alkaline Phosphatase 74 Total Protein 5.8 L Albumin 3.0 L 12/03/17 18:30 Sputum Gram Stain - Final 12/03/17 18:30 Sputum Sputum Culture - Final Pseudomonas Aeruginosa Normal Azul 12/03/17 12/03/17 12/03/17 06:15 12:48 12:48 Creatine Kinase 124 CK-MB (CK-2) 0.60 Troponin I 0.013 NT-Pro-B Natriuret Pep 1710 H 12/03/17 12/03/17 12/04/17 18:07 18:07 00:18 Creatine Kinase 179 H 162 H CK-MB (CK-2) 0.98 Troponin I < 0.012 NT-Pro-B Natriuret Pep 12/04/17 12/04/17 12/05/17 00:18 05:42 02:54 Creatine Kinase CK-MB (CK-2) 1.55 Troponin I < 0.012 NT-Pro-B Natriuret Pep 2580 H 3720 H Impressions: Chest X-Ray 12/02/17 17:28 IMPRESSION: NO ACUTE RADIOGRAPHIC FINDING IN THE CHEST. Assessment & Plan - Plan Summary Plan Summary: (1) Sepsis Qualifiers: Sepsis type: sepsis due to unspecified organism Qualified Code(s): A41.9 - Sepsis, unspecified organism Is this a current diagnosis for this admission?: Yes Plan: Still has elevated white blood cell count both improving. Respiratory status is improving with a normal respiratory rate and now on nasal cannula oxygen. Lactic acid level still elevated at 3.1. We will continue IVF, abx and continue to follow closely. Of note is that white blood cells improving. (2) Acute hypoxemic respiratory failure Is this a current diagnosis for this admission?: Yes Plan: Overall improved. No longer BiPAP dependent. On 1 L of nasal cannula oxygen and we will wean to off as tolerated. This is related to her pneumonia and COPD exacerbation. (3) COPD with exacerbation Is this a current diagnosis for this admission?: Yes Plan: Patient still has few expiratory wheezing. Will continue her methylprednisolone at 60 mg IV every 12 hours. We will continue bronchodilators and antibiotics. (4) Toxic metabolic encephalopathy Is this a current diagnosis for this admission?: Yes Plan: This was secondary to possible misuse of medications and acute illness. Patient 's mental status has improved to her baseline. (5) Anxiety disorder Is this a current diagnosis for this admission?: Yes Plan: Stable. We will continue her Xanax as ordered -- 0.5 mg p.o. 8 hours as needed anxiety (6) Acute kidney injury Is this a current diagnosis for this admission?: Yes Plan: Creatinine has normalized with fluid administration. (7) Pneumonia Is this a current diagnosis for this admission?: Yes Plan: Gram-negative rods growing in sputum. Will continue cefepime. (8) GERD (gastroesophageal reflux disease) Qualifiers: Esophagitis presence: esophagitis presence not specified Qualified Code(s) : K21.9 - Gastro-esophageal reflux disease without esophagitis Is this a current diagnosis for this admission?: No Plan: Stable, continue her PPI (9) Hypertension Qualifiers: Hypertension type: essential hypertension Qualified Code(s): I10 - Essential (primary) hypertension Is this a current diagnosis for this admission?: Yes Plan: Stable. Monitor carefully. (10) Elevated troponin Is this a current diagnosis for this admission?: Yes Plan: Trended back down to normal. Patient is chest pain-free. She would benefit from stress test when she is stable. (11) Chronic pain syndrome Is this a current diagnosis for this admission?: Yes Plan: Continue her oxycodone 10 mg with 325 of Tylenol as ordered, this is her outpatient dosing. We have not started her long-acting opiate and do not plan to do so at this point. Her pain is well controlled without it. (12) Opiate dependence Is this a current diagnosis for this admission?: Yes Plan: Secondary to long-term outpatient use. (13) UTI Is this a current diagnosis for this admission?: Yes Plan: She has gram-positive cocci in chains in her urine. Will continue current antibiotics. We will continue to monitor.
[2017-12-05] MEDS ORDERED: POTASSIUM CHLORIDE 10 MEQ CAPSULE.ER PO ONE (19:00)
[2017-12-05] MEDS: LIDOCAINE 5% (700 MG) TRANSDERMAL ADH..PATCH TP SCH (22:34)
[2017-12-05] MEDS: MONTELUKAST SODIUM 10 MG TABLET PO SCH (22:35)
[2017-12-06] MEDS: LANSOPRAZOLE 30 MG TAB.RAP.DR PO SCH (05:30)
[2017-12-06] MEDS: GABAPENTIN 300 MG CAPSULE PO SCH ×3 (05:30→21:35)
[2017-12-06 06:07] LABS: ANION GAP 9 (5-19); BLOOD UREA NITROGEN 17 mg/dL (7-20); CALCIUM 8.8 mg/dL (8.4-10.2); CARBON DIOXIDE 22 mmol/L (22-30); CHLORIDE 110 mmol/L (98-107); GLUCOSE 99 mg/dL (75-110); HEMATOCRIT 32.1 % (36.0-47.0); HEMOGLOBIN 11.1 g/dL (12.0-15.5); MEAN CORPUSCULAR HEMOGLOBIN 31.3 pg (27.0-33.4); MEAN CORPUSCULAR HGB CONC 34.6 g/dL (32.0-36.0); MEAN CORPUSCULAR VOLUME 90 fl (80-97); PLATELET COUNT 223 10^3/uL (150-450); POTASSIUM 4.4 mmol/L (3.6-5.0); RED BLOOD COUNT 3.55 10^6/uL (3.72-5.28); SODIUM 140.9 mmol/L (137-145); WHITE BLOOD COUNT 13.1 10^3/uL (4.0-10.5)
[2017-12-06 07:13] LABS: ABSOLUTE MONOCYTES # (MANUAL) 0.5 10^3/uL (0.1-1.4); ABSOLUTE NEUTROPHILS# (MANUAL) 9.6 10^3/uL (1.7-8.2); BAND NEUTROPHILS % (MANUAL) 2 % (3-5); BASOPHILS % (MANUAL) 0 % (0-2); EOSINOPHILS % (MANUAL) 0 % (0-6); LYMPHOCYTES % (MANUAL) 23 % (13-45); MONOCYTES % (MANUAL) 4 % (3-13); SEGMENTED NEUTROPHILS % (MAN) 71 % (42-78); TOTAL CELLS COUNTED 100
[2017-12-06 07:17] LABS: RBC MORPHOLOGY COMMENT NORMO-CYTIC/CHROMIC
[2017-12-06 07:37] LABS: PLATELET COMMENT ADEQUATE
[2017-12-06] MEDS: IPRATROPIUM/ALBUTEROL 0.5-2.5 MG/3 ML AMPUL NEB SCH ×4 (08:44→20:45)
[2017-12-06] MEDS: ROFLUMILAST 500 MCG TABLET PO SCH (09:40)
[2017-12-06] MEDS: METOPROLOL TARTRATE 25 MG TABLET PO SCH ×2 (09:40→21:35)
[2017-12-06] MEDS: CEFEPIME 2 GM/D5W RTU 2 GM/50 ML RTUPB IV SCH ×2 (09:42→21:34)
[2017-12-06] MEDS: ENOXAPARIN SODIUM INJ 40 MG/0.4 ML DISP.SYRIN SUBCUT SCH (09:42)
[2017-12-06] MEDS: PHARMACY COMMUNICATION ORDER MC SCH (09:43)
[2017-12-06] MEDS: NICOTINE 21 MG/24 HR PATCH.TD24 TD SCH (09:44)
[2017-12-06] MEDS: GUAIFENESIN 600 MG TABLET.SA PO SCH ×2 (09:44→21:35)
[2017-12-06] MEDS: METHYLPREDNISOLONE INJ 125 MG/2 ML SDV IV SCH (09:44)
[2017-12-06] MEDS: OXYCODONE-ACETAMINOPHEN 5-325 MG TABLET PO PRN (11:58)
[2017-12-06] MEDS: OXYCODONE HCL IR 5 MG TABLET PO PRN (11:58)
--- NOTE | 2017-12-06 16:17 | PDOC PROGRESS REPORT ---
Subjective Progress Note for:: 12/06/17 Subjective:: No adverse events overnight. She been on fluids and her legs swelled up suddenly. She said that she still has a little bit of a cough but she has been able to lay down flat. No chest pain. She still gets a little short of breath with exertion but she says is definitely improved. No fevers. Reason For Visit: ACUTE RESP FAILURE, COPD EXACERBATION, SEPSIS Physical Exam Vital Signs: Temp Pulse Resp BP Pulse Ox 97.7 F 92 22 H 139/87 H 98 12/06/17 15:32 12/06/17 15:32 12/06/17 15:32 12/06/17 15:32 12/06/17 15:32 Intake & Output 12/05/17 12/06/17 12/07/17 06:59 06:59 06:59 Intake Total 3804 4112 1154 Output Total 5200 1600 Balance -1396 2512 1154 Weight 70.1 kg 70 kg General appearance: PRESENT: no acute distress, cooperative Respiratory exam: PRESENT: unlabored, wheezes. ABSENT: accessory muscle use, rales, rhonchi Cardiovascular exam: PRESENT: RRR. ABSENT: systolic murmur GI/Abdominal exam: PRESENT: normal bowel sounds, soft. ABSENT: guarding, rebound, tenderness Extremities exam: PRESENT: +1 edema Musculoskeletal exam: PRESENT: ambulatory. ABSENT: deformity Neurological exam: PRESENT: alert, awake, oriented to person, oriented to place , oriented to time Skin exam: PRESENT: dry, warm Results Laboratory Results: 12/06/17 05:28 12/06/17 05:28 12/05/17 12/06/17 12/06/17 16:47 05:28 05:28 WBC 13.1 H RBC 3.55 L Hgb 11.1 L Hct 32.1 L MCV 90 MCH 31.3 MCHC 34.6 RDW 14.0 Plt Count 223 Seg Neutrophils % Not Reportable Lymphocytes % Not Reportable Monocytes % Not Reportable Eosinophils % Not Reportable Basophils % Not Reportable Absolute Neutrophils Not Reportable Absolute Lymphocytes Not Reportable Absolute Monocytes Not Reportable Absolute Eosinophils Not Reportable Absolute Basophils Not Reportable Sodium 140.9 Potassium 4.4 Chloride 110 H Carbon Dioxide 22 Anion Gap 9 BUN 17 Creatinine 0.73 Est GFR ( Amer) > 60 Est GFR (Non-Af Amer) > 60 Glucose 99 Lactic Acid 3.5 H Calcium 8.8 12/06/17 05:28 WBC RBC Hgb Hct MCV MCH MCHC RDW Plt Count Seg Neutrophils % Lymphocytes % Monocytes % Eosinophils % Basophils % Absolute Neutrophils Absolute Lymphocytes Absolute Monocytes Absolute Eosinophils Absolute Basophils Sodium Potassium Chloride Carbon Dioxide Anion Gap BUN Creatinine Est GFR ( Amer) Est GFR (Non-Af Amer) Glucose Lactic Acid 1.9 Calcium 12/03/17 12/03/17 12/03/17 06:15 12:48 12:48 Creatine Kinase 124 CK-MB (CK-2) 0.60 Troponin I 0.013 NT-Pro-B Natriuret Pep 1710 H 12/03/17 12/03/17 12/04/17 18:07 18:07 00:18 Creatine Kinase 179 H 162 H CK-MB (CK-2) 0.98 Troponin I < 0.012 NT-Pro-B Natriuret Pep 12/04/17 12/04/17 12/05/17 00:18 05:42 02:54 Creatine Kinase CK-MB (CK-2) 1.55 Troponin I < 0.012 NT-Pro-B Natriuret Pep 2580 H 3720 H Impressions: Chest X-Ray 12/02/17 17:28 IMPRESSION: NO ACUTE RADIOGRAPHIC FINDING IN THE CHEST. Assessment & Plan - Diagnosis (1) Acute hypoxemic respiratory failure Is this a current diagnosis for this admission?: Yes Plan: Resolved (2) COPD with exacerbation Is this a current diagnosis for this admission?: Yes Plan: We will switch her over to prednisone today. She is clinically improved. (3) Sepsis Qualifiers: Sepsis type: sepsis due to unspecified organism Qualified Code(s): A41.9 - Sepsis, unspecified organism Is this a current diagnosis for this admission?: Yes Plan: Resolved. She started to swell up and so we stopped her IV fluids. (4) Pneumonia Qualifiers: Pneumonia type: due to Pseudomonas Laterality: unspecified laterality Lung location: unspecified part of lung Qualified Code(s): J15.1 - Pneumonia due to Pseudomonas Is this a current diagnosis for this admission?: Yes Plan: This is due to a pansensitive Pseudomonas aeruginosa. She is responding well to Levaquin. - Time Time Spent with patient: 25-34 minutes Smoking Cessation Education: 3 to 10 minutes Medications reviewed and adjusted accordingly: Yes
[2017-12-06] MEDS: LIDOCAINE 5% (700 MG) TRANSDERMAL ADH..PATCH TP SCH (21:36)
[2017-12-06] MEDS: MONTELUKAST SODIUM 10 MG TABLET PO SCH (21:40)
[2017-12-07] MEDS: GABAPENTIN 300 MG CAPSULE PO SCH ×2 (05:51→13:51)
[2017-12-07] MEDS: LANSOPRAZOLE 30 MG TAB.RAP.DR PO SCH (05:52)
[2017-12-07] MEDS: OXYCODONE-ACETAMINOPHEN 5-325 MG TABLET PO PRN (06:52)
[2017-12-07] MEDS: IPRATROPIUM/ALBUTEROL 0.5-2.5 MG/3 ML AMPUL NEB SCH ×2 (07:42→11:19)
[2017-12-07] MEDS: CEFEPIME 2 GM/D5W RTU 2 GM/50 ML RTUPB IV SCH (09:36)
[2017-12-07] MEDS: NICOTINE 21 MG/24 HR PATCH.TD24 TD SCH (09:36)
[2017-12-07] MEDS: METOPROLOL TARTRATE 25 MG TABLET PO SCH (09:37)
[2017-12-07] MEDS: GUAIFENESIN 600 MG TABLET.SA PO SCH (09:37)
[2017-12-07] MEDS: ROFLUMILAST 500 MCG TABLET PO SCH (09:37)
[2017-12-07] MEDS: ENOXAPARIN SODIUM INJ 40 MG/0.4 ML DISP.SYRIN SUBCUT SCH (09:38)
[2017-12-07] MEDS: PHARMACY COMMUNICATION ORDER MC SCH (09:44)
[2017-12-07] MEDS ORDERED: PREDNISONE 20 MG TABLET PO SCH (10:00)
[2017-12-07 16:07] VITALS: BP 138/74
--- NOTE | 2017-12-07 18:45 | PDOC DISCHARGE SUMMARY ---
General - Admit/Disc Date/PCP Admission Date/Primary Care Provider: 12/02/17 20:57 EBONY GRADY, DO Discharge Date: 12/07/17 - Discharge Diagnosis (1) Acute hypoxemic respiratory failure Is this a current diagnosis for this admission?: Yes Summary: Resolved (2) COPD with exacerbation Is this a current diagnosis for this admission?: Yes Summary: Responded to steroids. This is resolved. She had about 5 days of steroids and does not seem like she is going to need any to go home with. (3) Sepsis Is this a current diagnosis for this admission?: Yes Summary: Resolved (4) Pneumonia Is this a current diagnosis for this admission?: Yes Summary: Turned out to be due to a pansensitive Pseudomonas aeruginosa. Levaquin she will finish at home will also cover the Citrobacter that was in her urine. - Additional Information Resuscitation Status: Full Code Discharge Diet: Other (Comments) Discharge Activity: Activity As Tolerated, Keep Legs Elevated, Slowly Increase Activity, Walk Frequently Prescriptions: Levofloxacin [Levaquin 750 mg Tablet] 750 mg PO DAILY #5 tablet Home Medications: Budesonide/Formoterol Fumarate [Symbicort HFA 160-4.5 mcg Inhaler 6 gm] 2 puff IH Q12 03/25/14 Oxycodone HCl/Acetaminophen [Oxycodone-Acetaminophen 10-325] 1 each PO Q6 PRN Alprazolam [Xanax] 1 mg PO Q8HP PRN 12/02/17 Amlodipine Besylate [Norvasc 5 mg Tablet] 5 mg PO DAILY 12/02/17 Estrogen,Con/M-Progest Acet [Prempro 0.625-5 mg Tablet] 1 each PO DAILY Gabapentin [Neurontin 300 mg Capsule] 600 mg PO Q8 12/02/17 Hydrochlorothiazide [Hydrodiuril 25 mg Tablet] 50 mg PO QAM 12/02/17 Lidocaine [Lidoderm 5% (700 mg) Transdermal Patch] 1 patch TP DAILY 12/02/17 Metoprolol Tartrate [Lopressor 25 mg Tablet] 25 mg PO Q12 12/02/17 Montelukast Sodium [Singulair 10 mg Tablet] 10 mg PO QHS 12/02/17 Nitroglycerin [Nitrostat 0.4 mg (1/150 Gr) Tabs 25/Bottle] 1 tab SL Q5MP PRN Nortriptyline HCl [Pamelor 25 mg Capsule] 25 mg PO QHS 12/02/17 Nystatin [Mycostatin Cream 15 gm] 1 applic TP QID 12/02/17 Oxymorphone HCl [Oxymorphone HCl ER] 30 mg PO Q12 12/02/17 Pantoprazole Sodium [Protonix] 40 mg PO BID 12/02/17 Potassium Chloride [Klor-Con M20] 40 meq PO DAILY 12/02/17 Roflumilast [Daliresp 500 mcg Tablet] 500 mcg PO DAILY 12/02/17 Tizanidine HCl [Zanaflex] 6 mg PO Q8HP PRN 12/02/17 Trazodone HCl [Desyrel 50 mg Tablet] 50 mg PO QHS 12/02/17 Levofloxacin [Levaquin 750 mg Tablet] 750 mg PO DAILY #5 tablet 12/07/17 History of Present Illness History of Present Illness: OTM CAPPS is a 47 year old female with history of multiple medical problems that will be mentioned below presented to emergency room with a concern of dyspnea with associated congestive cough with inability to expectorate much, wheezing as well as fever with a T-max of 101 at home and chills. She denies any chest pain or palpitations. No nausea or vomiting or abdominal pain. No headache or dizziness or blurred vision. No dysuria oliguria hematuria or flank pain. No orthopnea or paroxysmal nocturnal dyspnea or lower extremity edema. Upon presentation to the emergency room, blood pressure was initially elevated 141/112 and later 157/113 respiratory rate was 53 and pulse oximetry was 89% on 2 L O2 by nasal cannula. She was in significant respiratory distress and was placed on BiPAP with good response. Pulse oximetry was up to 97 and later 100% on 80% FiO2. Respiratory rate was down to 33. She was initially febrile with a temperature of 102 and later on 1 1.5. Labs were remarkable for significant exactas of 25.5 with hemoglobin 17 hematocrit 48.8 with platelets of 319 and neutrophils of 82%. ABG showed pH 7.61 L 7.6, PCO2 30.7 later 30.3, PO2 of 56.9 and later 81.8, bicarbonate 30.1 L 29.3 and O2 sat is 94% and later 97.6% percent FiO2. CMP revealed mild hypernatremia and borderline potassium of 3.5 hypochloremia of 96 and a CO2 of 28. Anion gap was 23 with a BUN of 69 creatinine 1.58 and GFR 35 calcium of 10.3 magnesium of 2.5. LFTs were elevated and BNP was 2010 with total protein of 8.7. Urinalysis showed more than 500 protein 3 WBCs and 4 hyaline casts with trace bacteria. Leukocyte esterase and nitrite were both negative. Urine drug screen came back positive for benzodiazepines and marijuana. Chest x-ray showed no acute cardiopulmonary disease. EKG shows sinus tachycardia with left anterior fascicular block and later on normal sinus rhythm with a rate of 98 with right axis deviation and prolonged QT interval (QTC 511 MS). The patient was given hydration with a liter bolus of IV normal saline, IV Rocephin and Zithromax, DuoNeb's and 975 mg of [place] Tylenol. The patient will be admitted to an ICU bed for further evaluation and management. Hospital Course Hospital Course: She responded pretty quickly to antibiotics, steroids, supplemental O2, and bronchodilators. Were able to get her off oxygen completely. Her vital signs remained stable. She was wheezing a little bit but that has also resolved she should need to go home on any steroids. Turned out that she had a Pseudomonas in her sputum and a Citrobacter in her urine. Both of these were sensitive to fluoroquinolones and so she is being sent home on a course of Levaquin. She was ambulating and eating and drinking without difficulty on room air. Her labs and examination were reassuring and she was discharged home today in good condition. Physical Exam Vital Signs: Temp Pulse Resp BP Pulse Ox 98.0 F 105 H 16 133/81 H 97 12/07/17 15:52 12/07/17 15:52 12/07/17 15:52 12/07/17 15:52 12/07/17 15:52 Intake & Output 12/06/17 12/07/17 12/08/17 06:59 06:59 06:59 Intake Total 4112 2605 759 Output Total 1600 Balance 5142 2605 759 Weight 70 kg 73.6 kg General appearance: PRESENT: no acute distress, cooperative, disheveled Respiratory exam: PRESENT: rhonchi - Scattered, unlabored. ABSENT: accessory muscle use, rales, tachypnea, wheezes Cardiovascular exam: PRESENT: RRR. ABSENT: systolic murmur Vascular exam: PRESENT: normal capillary refill GI/Abdominal exam: PRESENT: normal bowel sounds, soft. ABSENT: guarding, rebound, tenderness Extremities exam: PRESENT: full ROM, pedal edema, +1 edema Musculoskeletal exam: PRESENT: ambulatory, full ROM, normal inspection. ABSENT : deformity Neurological exam: PRESENT: alert, awake, oriented to person, oriented to place , oriented to time Psychiatric exam: PRESENT: appropriate affect, normal mood Skin exam: PRESENT: dry, warm Results Laboratory Results: 12/06/17 05:28 12/06/17 05:28 12/03/17 12/03/17 12/03/17 06:15 12:48 12:48 Creatine Kinase 124 CK-MB (CK-2) 0.60 Troponin I 0.013 NT-Pro-B Natriuret Pep 1710 H 12/03/17 12/03/17 12/04/17 18:07 18:07 00:18 Creatine Kinase 179 H 162 H CK-MB (CK-2) 0.98 Troponin I < 0.012 NT-Pro-B Natriuret Pep 12/04/17 12/04/17 12/05/17 00:18 05:42 02:54 Creatine Kinase CK-MB (CK-2) 1.55 Troponin I < 0.012 NT-Pro-B Natriuret Pep 2580 H 3720 H Impressions: Chest X-Ray 12/02/17 17:28 IMPRESSION: NO ACUTE RADIOGRAPHIC FINDING IN THE CHEST. Qualifiers - * PATIENT BEING DISCHARGED WITH ANY OF THE FOLLOWING DIAGNOSIS: No
== END 2017-12-07 16:22 | disposition home or self-care (01) | DRG 871 ==
LOC: ER 17:06 → EH 20:57 → ICU 12-03 10:51 → 3S 12-03 22:45
PROVIDERS: ADMIT Family Medicine; ATTEND Family Medicine
DX: A41.9 Sepsis, unspecified organism (principal); J96.01 Acute respiratory failure with hypoxia; J15.1 Pneumonia due to Pseudomonas; G92 Toxic encephalopathy; N17.9 Acute kidney failure, unspecified; J44.0 Chronic obstructive pulmonary disease with (acute) lower respiratory infection; J44.1 Chronic obstructive pulmonary disease with (acute) exacerbation; F11.20 Opioid dependence, uncomplicated; N39.0 Urinary tract infection, site not specified; I10 Essential (primary) hypertension; I44.4 Left anterior fascicular block; K21.9 Gastro-esophageal reflux disease without esophagitis; R41.82 Altered mental status, unspecified; G89.4 Chronic pain syndrome; F41.9 Anxiety disorder, unspecified; F12.90 Cannabis use, unspecified, uncomplicated; F17.210 Nicotine dependence, cigarettes, uncomplicated; I25.2 Old myocardial infarction; Z79.51 Long term (current) use of inhaled steroids; Z79.899 Other long term (current) drug therapy
CPT/HCPCS: 36415; 71045; 80048; 80053; 80307; 81001; 82140; 82550; 82553; 82803; 83605; 83735; 83880; 84484; 85025; 85027; 87040; 87070; 87077; 87086; 87088; 87186; 87205; 93005; 93010; 94640; 94660; 96361; 96365; 99285; J0456; J0692; J0696; J1650; J2920; J2930; J3370; J3480; J3490; J7030; J7060; J7512; J7620